=== PATIENT | female | born 1960 | race Two or more races ===

== ENCOUNTER 2023-02-25 15:34 | Outpatient (OUT) | payer OTHER, SELFPAY ==
[2023-02-25 16:00] LABS: Basophils Percent Auto 0.6 % (0.2-2.0); Eosinophils Absolute Auto 0.3 10^3/uL (0.0-0.7); Eosinophils Percent Auto 4.1 % (0.9-7.0); Hematocrit 38.4 % (36.0-48.0); Hemoglobin 12.8 g/dL (12.0-16.0); Immature Granulocytes Abs Auto 0.02 10^3/uL (0.00-0.03); Immature Granulocytes Pct Auto 0.3 % (0.0-0.5); Lymphocytes Absolute Auto 2.1 10^3/uL (1.2-3.8); Lymphocytes Percent Auto 33.2 % (20.5-60.0); Mean Corpuscular HGB Conc 33.3 g/dL (29.9-35.2); Mean Corpuscular Hemoglobin 30.4 pg (26.7-34.0); Mean Corpuscular Volume 91.2 fL (81.0-99.0); Mean Platelet Volume 9.4 fL (9.5-13.5); Monocytes Absolute Auto 0.6 10^3/uL (0.3-0.8); Monocytes Percent Auto 9.8 % (1.7-12.0); Neutrophils Absolute Auto 3.3 10^3/uL (1.4-6.5); Platelet Count 225 10^3/uL (150-450); Red Blood Count 4.21 10^6/uL (4.20-5.40); Red Cell Distribution Width 12.9 % (11.0-15.0); White Blood Count 6.3 10^3/uL (4.0-11.0)
[2023-02-25 16:09] LABS: Estimated Average Glucose 105 mg/dL; Glycohemoglobin A1C 5.3 % (4.5-6.2)
[2023-02-25 16:20] LABS: Alanine Aminotransferase 36 U/L (14-59); Albumin Globulin Ratio 1.2; Albumin Level 4.1 g/dL (3.4-5.0); Alkaline Phosphatase 89 U/L (46-116); Anion Gap 10.3; Aspartate Amino Transferase 20 U/L (15-37); BUN Creatinine Ratio 26.4; Bilirubin Total 0.4 mg/dL (0.2-1.0); Calcium 8.8 mg/dL (8.5-10.1); Carbon Dioxide 29.2 mmol/L (21.0-32.0); Chloride 106 mmol/L (98-107); Estimated GFR (African America >60 (>=60); Estimated GFR (Non-African Ame >60 (>=60); Globulin 3.3 g/dL; Glucose 113 mg/dL (74-106); Potassium 3.5 mmol/L (3.5-5.1); Sodium 142 mmol/L (136-145); Thyroid Stimulating Hormone 1.858 uIU/mL (0.358-3.740); Total Protein 7.4 g/dL (6.4-8.2)
== END 2023-02-25 15:35 | disposition home or self-care (01) ==
PROVIDERS: PCP Internal Medicine; Visit Provider Internal Medicine
DX: Z00.00 Encounter for general adult medical examination without abnormal findings (principal); Z12.11 Encounter for screening for malignant neoplasm of colon
CPT/HCPCS: 36415; 80053; 82607; 83036; 84443; 85025

== ENCOUNTER 2023-03-11 16:11 | Outpatient (OUT) | payer OTHER, SELFPAY ==
--- NOTE | 2023-03-11 16:35 | MM_ITS ---
Patient: ELLE GALLAGHER Exam Date: 03/11/2023 : 1960 Gender:F Ordering : DR Dwayne Hill D.O. Admission #: [id number] Family : Order #: [id number] CLICK HERE TO VIEW EXAM RADIOLOGY REPORT PROCEDURE: MM TOMOSYNTHESIS SCREENING BI COMPARISON: MG MAMM DIAGNOSTIC 3D VALENTIN CAD, 07/03/2021. MG MAMM VALENTIN DIAG W CAD, 07/18/2020. INDICATIONS: Screening mammogram Calculator Name NCI Breast Cancer Risk Assessment Tool 5 Year Breast Cancer Risk 0.70% Lifetime Breast Cancer Risk 4.00% Personal Breast Cancer No Personal Ovarian Cancer No Treatments None Family Cancers None LOCATION: [facility] BREAST COMPOSITION: Scattered areas fibroglandular density. FINDINGS: DIAGNOSTIC CATEGORY 2--BENIGN FINDING: RIGHT BREAST: No significant suspicious finding. No significant change has occurred. LEFT BREAST: No significant suspicious finding. Stable asymmetries. No significant change has occurred. RECOMMENDATIONS: ROUTINE MAMMOGRAM AND CLINICAL EVALUATION IN 12 MONTHS. PLEASE NOTE: A NORMAL MAMMOGRAM DOES NOT EXCLUDE THE POSSIBILITY OF BREAST CANCER. A CLINICALLY SUSPICIOUS PALPABLE LUMP SHOULD BE BIOPSIED. Dictated by: Lonnie Garcia M.D. on 03/12/2023 at 10:19 Approved by: Lonnie Garcia M.D. on 03/12/2023 at 10:22
== END 2023-03-11 16:12 | disposition home or self-care (01) ==
LOC: MAMMO 16:11
PROVIDERS: PCP Internal Medicine; Visit Provider Internal Medicine
DX: Z12.31 Encounter for screening mammogram for malignant neoplasm of breast (principal)
CPT/HCPCS: 77063; 77067

== ENCOUNTER 2023-03-30 15:17 | Outpatient (OUT) | payer OTHER, SELFPAY ==
--- NOTE | 2023-03-30 | XR_ITS ---
The [place] [id number] Patient Name: ELLE GALLAGHER MRN: [id number] date: 1960 Sex: F Assigned Patient Location: RAD Current Patient Location: RAD Accession/Order Number: [id number] Exam Date: 03/30/2023 15:44 Report Date: 03/30/2023 16:23 At the request of: DANILO RODRIGUEZ Procedure: XR foot LT min 3V XR foot LT min 3V, 03/30/2023 3:44 PM EDT, [place]001 INDICATION: BUMP ON FOOT COMPARISON: None TECHNIQUE: 3 images are submitted. FINDINGS: The bones appear well mineralized. No acute fracture or subluxation is identified. There is slight osteophyte formation at the first metatarsophalangeal joint. There are minimal plantar and posterior calcaneal spurs. The visualized soft tissues appear unremarkable. XR/XR foot LT min 3V IMPRESSION: No acute traumatic abnormality or malalignment. Slight degenerative change. Electronically authenticated by: JACQUI HAINES Date: 03/30/2023 16:23
== END 2023-03-30 15:18 | disposition home or self-care (01) ==
LOC: RAD 15:18
PROVIDERS: PCP Internal Medicine; Visit Provider Physician Assistant
DX: M79.672 Pain in left foot (principal)
CPT/HCPCS: 73630

== ENCOUNTER 2023-04-06 15:29 | Outpatient (OUT) | payer OTHER, SELFPAY ==
--- NOTE | 2023-04-06 15:38 | MR_ITS ---
The [address] [address] Patient Name: ELLE GALLAGHER MRN: [id number] date: 1960 Sex: F Assigned Patient Location: MRI Current Patient Location: MRI Accession/Order Number: [id number] Exam Date: 04/06/2023 15:45 Report Date: 04/06/2023 23:07 At the request of: DANILO RODRIGUEZ Procedure: MR foot LT wo con EXAM: MR foot LT wo con HISTORY: Left foot soft tissue mass COMPARISON: Left foot x-rays 03/30/2023 TECHNIQUE: Multiplanar, multi sequential MRI sequences were performed. FINDINGS: This study is limited as the only fluid sensitive fat saturated sequences performed in the sagittal projection. Within the dorsal subcutaneous soft tissues adjacent to the lateral aspect of the first proximal phalanx base is a 14.4 x 7.9 x 7.7 mm simple appearing synovial cyst (axial 13 and sagittal 18). No soft tissue edema, hematoma or discrete mass. No visualized fracture, dislocation, subluxation or osseous lesion. No joint effusion, synovitis or visualized erosion. The visualized tendons exhibit no gross thickening, tear, edema or tenosynovial collection. No abnormal bursal fluid collection. No sesamoid dislocation. Evaluation of the intersesamoid ligament is limited, however, it is presumed to be intact. No gross visualized muscular irregularity. MR/MR foot LT wo con IMPRESSION: 14.4 x 7.9 x 7.7 mm simple appearing synovial cyst adjacent to the base of the first proximal phalanx. Electronically authenticated by: ERWIN BECKER Date: 04/06/2023 23:07
== END 2023-04-06 15:30 | disposition home or self-care (01) ==
LOC: MRI 15:30
PROVIDERS: PCP Internal Medicine; Visit Provider Physician Assistant
DX: R22.42 Localized swelling, mass and lump, left lower limb (principal); M71.372 Other bursal cyst, left ankle and foot
CPT/HCPCS: 73718

== ENCOUNTER 2024-01-15 10:56 | Emergency (ER) | payer SELFPAY ==
[2024-01-15 11:02] VITALS: BP 154/99; PULSE 80; TEMP 36.8; O2SAT 97; BMI 27.7
[2024-01-15] MEDS: TRIAMCINOLONE ACETONIDE 40 MG/ML VIAL IM (12:11)
[2024-01-15] MEDS: DEXAMETHASONE SOD PHOS 4 MG/ML VIAL IV (12:11)
[2024-01-15 12:19] VITALS: PULSE 72; O2SAT 99
--- NOTE | 2024-01-15 12:59 | ED_ITS ---
HPI HPI - General Adult General Chief complaint: Allergic Reaction Stated complaint: ALLERGIC REACTION Time Seen by Provider: 01/15/24 11:07 Source: patient Mode of arrival: walk-in Limitations: no limitations History of Present Illness HPI narrative: 63-year-old female to the emergency department chief complaint of rash on the left side of her face and her neck/chest. Symptoms began on Wednesday after mowing the lawn. She is never had symptoms like this before. She reports some swelling associated with the redness. She denies any fever, sweats, chills. She is not diabetic. She reports that her face itches. She has taken Benadryl and Zyrtec and it did help. Related Data Allergies Allergy/AdvReac Type Severity Reaction Status Date / Time Penicillins Allergy Mild Anaphylaxis Verified 01/15/24 11:06 Opioid HPI Opioid Management Most Recent Opioid Data: No Data to Display Review of Systems ROS Status of ROS 10 or more systems reviewed and unremark able except as noted in history and below Exam Narrative Exam Narrative: VITALS: I have reviewed the triage vital signs. GENERAL: Well developed, well appearing adult in no acute distress. NEURO: Alert and oriented. Moves all extremities. Face is symmetric and e xpressive. EYES: PERRL. No scleral icterus or conjunctival injection. No discharge. HENT: Normocephalic, atraumatic. Hearing is grossly intact. Nares grossly patent and without discharge. Mucous membranes moist. NECK: No JVD. Patient moves neck without restriction. EXTREMITIES: Symmetric muscle bulk. No joint swelling. No clubbing, cyanosis, or deformity. SKIN: Erythematous rash without vesicles to the face left worse than right, some mild left-sided lid edema, rash extrinsics as streaky red lines to the neck and chest. No hives. No petechia or purpura. No warmth. No sharply demarcated lines. PSYCH: Mood, affect, and interaction is appropriate to the setting. Constitutional Vital Signs, click to edit/add: Last Vital Signs Temp 98.3 F 01/15/24 11:02 Pulse 72 01/15/24 12:19 Resp 16 01/15/24 12:19 BP 154/99 H 01/15/24 11:02 Pulse Ox 99 01/15/24 12:19 O2 Del Method Room Air 01/15/24 11:02 Course Vital Signs Vital signs: Vital Signs Temperature 98.3 F 01/15/24 11:02 Pulse Rate 80 01/15/24 11:02 Respiratory Rate 20 01/15/24 11:02 Blood Pressure 154/99 H 01/15/24 11:02 Pulse Oximetry 97 01/15/24 11:02 Oxygen Delivery Method Room Air 01/15/24 11:02 Temperature 98.3 F 01/15/24 11:02 Pulse Rate 72 01/15/24 12:19 Respiratory Rate 16 01/15/24 12:19 Blood Pressure 154/99 H 01/15/24 11:02 Pulse Oximetry 99 01/15/24 12:19 Oxygen Delivery Method Room Air 01/15/24 11:02 Medical Decision Making MDM Narrative Medical decision making narrative: Otherwise well-appearing 63-year-old female to the emergency department chief complaint of rash to her face and chest. Vital stable, the patient is afebrile. Temporal association with cutting the grass. Clinical exam is that of contact dermatitis. Possibly even poison teresita/poison oak. Does not appear to be zoster. Does not appear to be erysipelas or cellulitis. Will treat with steroids. She is given a dose of dexamethasone and a shot of Kenalog. She will continue to take Benadryl and Zyrtec at home. She will follow-up with her PCP for repeat evaluation. Return precautions were discussed. I educated on signs of infectious process. All questions were answered. Patient was discharged home. Medical Records Medical records reviewed: Yes I reviewed the patient's medical records Discharge Plan Discharge Stand Alone Forms: Portal Instructions Chief Complaint: Allergic Reaction Clinical Impression: Contact dermatitis and eczema due to plant Patient Disposition: Home, Self-Care Time of Disposition Decision: 12:12 Condition: Good Mode of Transportation: Private Vehicle Print Language: Faroese Instructions: Contact Dermatitis (ED) Additional Instructions: Call the office of your primary care doctor to arrange for follow-up within the above-stated timeframe. Follow-up with your primary care doctor about this ED visit. You should review your labs, imaging, and diagnoses from this ED visit with your primary care physician. There may be non-emergent findings that need further evaluation. If you were prescribed medications you should discuss possible side-effects and drug interactions with your pharmacist. Call 911 or go to the nearest Emergency Department if you develop any new or worsening symptoms. You may continue to take Benadryl and Zyrtec at home. Referrals: Dwayne Hill DO [Primary Care Provider] - 1 week Discharge Date/Time: 01/15/24 12:32
== END 2024-01-15 12:32 | disposition home or self-care (01) ==
PROVIDERS: Emergency Provider Student in an Organized Health Care Education/Training Program; PCP Internal Medicine
DX: L23.7 Allergic contact dermatitis due to plants, except food (principal)
CPT/HCPCS: 96372; 96374; 99284; J1100; J3301

== ENCOUNTER 2024-03-16 14:53 | Outpatient (OUT) | payer SELFPAY ==
--- NOTE | 2024-03-16 14:57 | MM_ITS ---
Patient Name: ELLE GALLAGHER MR#: [id number] : 1960 Exam Date: 03/16/2024 Ordering Doctor: DR Dwayne Hill D.O. RADIOLOGY REPORT PROCEDURE: MM TOMOSYNTHESIS SCREENING BI COMPARISON: MM TOMOSYNTHESIS SCREENING BI, 03/11/2023. MG MAMM DIAGNOSTIC 3D VALENTIN CAD, 07/03/2021. MG MAMM VALENTIN DIAG W CAD, 07/18/2020. INDICATIONS: Screening Calculator Name NCI Breast Cancer Risk Assessment Tool 5 Year Breast Cancer Risk 0.80% Lifetime Breast Cancer Risk 3.90% Personal Breast Cancer No Personal Ovarian Cancer No Treatments None Family Cancers None LOCATION: [facility] BREAST COMPOSITION: There are scattered areas of fibroglandular density. FINDINGS: DIAGNOSTIC CATEGORY 2--BENIGN FINDING: RIGHT BREAST: No significant suspicious finding. No significant change has occurred. LEFT BREAST: No significant suspicious finding. Stable asymmetric fibroglandular tissue within upper anterior breast. No significant change has occurred. RECOMMENDATIONS: ROUTINE MAMMOGRAM AND CLINICAL EVALUATION IN 12 MONTHS. PLEASE NOTE: A NORMAL MAMMOGRAM DOES NOT EXCLUDE THE POSSIBILITY OF BREAST CANCER. A CLINICALLY SUSPICIOUS PALPABLE LUMP SHOULD BE BIOPSIED. Dictated by: Lonnie Garcia M.D. on 03/17/2024 at 12:40 Approved by: Lonnie Garcia M.D. on 03/17/2024 at 12:43
--- OUTSIDE RECORDS SUMMARY | 2024-03-16 15:09 | XMS_ITS | CCD ---
Author Organization [facility] Care Team Providers Care Machine Operator Packaging Name Role Phone SERGIO, DR BOYKIN Consulting Unavailable BALL, DR BOYKIN Primary Care Unavailable BALL, DR BOYKIN Admitting Unavailable BALL, DR BOYKIN Attending Unavailable BLAZE, DR ERWIN Calderon Consulting Unavailable BALL, DR BOYKIN Primary Care Unavailable SERGIO, DR BOYKIN Admitting Unavailable BALL, DR BOYKIN Attending Unavailable BALL, DR BOYKIN Consulting Unavailable ZIEBER, DR LONNIE Pablo Consulting Unavailable BALL, DR BOYKIN Consulting Unavailable BALL, DR BOYKIN Primary Care Unavailable BALL, DR BOYKIN Admitting Unavailable BALL, DR BOYKIN Attending Unavailable Ball, Dwayne Unavailable Allergies Allergy Classification Reported Allergen(s) Allergy Type Date of Onset Reaction(s) Facility (1 source) Morphine Drug Allergy 12-13-19 14 [facility] Repository (1 source) Penicillins Drug allergy (disorder) 12-13-19 14 [facility] Repository (5 sources) Latex Drug allergy Unknown [facility] Other (5 sources) Substance with penicillin structure and antibacterial mechanism of action (substance) Drug allergy Unknown [facility] Other (2 sources) patient allergy list reviewed by nurse or physicia Propensity to adverse reactions 03-07-20 18 Comment:Done [facility] Other (2 sources) Allergies Reconciled Propensity to adverse reactions Unknown [facility] Other Medications Current Medications Medication Drug Class(es) Dates Sig (Normalized) Sig (Original) aspirin 81 mg delayed release oral tablet (4 sources) Platelet Aggregation Inhibitor, Nonsteroidal Anti-inflammatory Drug Start: 03-14-2022 Aspirin Adult Low Dose 81 MG Aspirin( 81MG Oral 1 daily ) Active -Hx Entry Oral daily Mar, Active escitalopram 10 mg oral tablet (1 source) Serotonin Reuptake Inhibitor Start: 08-11-2023 take 1 tablet by mouth once at bedtime Escitalopram Oxalate 10 MG 1 tablet Orally q HS for 30 days Aug, Active estrogens, conjugated (mcfp) 0.625 mg/ml vaginal cream (4 sources) Estrogen Start: 08-08-2020 Premarin 0.625 MG/GM as directed Vaginal three times per week at bedtime for 0 days ok to substitute whatever insurance will cover *Pick strength-form from [employer] for [employer]* Aug, Active Start: 08-08-2020 Premarin 0.625 MG/GM as directed Vaginal three times per week at bedtime for 0 days ok to substitute whatever insurance will cover *Pick strength-form from [employer] for [employer]* Aug, Active Start: 08-08-2020 Premarin 0.625 MG/GM Premarin 0.625MG/GM, 1 (one) gram gram three times per week at bedtime # 1, 08/08/2020, Ref. x2. Active Vaginal three times per week at bedtime for 0 ok to substitute whatever insurance will cover *Pick strength-form from [employer] [facility] [employer]* Aug, Active gabapentin 100 mg oral capsule (2 sources) Anti-epileptic Agent Start: 02-23-2023 take 1-2 capsules by mouth once at bedtime Gabapentin 100 MG 1-2 capsules Orally q HS for 30 days Jan, Active isosorbide dinitrate 30 mg oral tablet (2 sources) Nitrate Vasodilator Start: 03-14-2022 Isosorbide Dinitrate 30MG Isosorbide Dinitrate( 30MG Oral 1 daily ) Active -Hx Entry Oral daily for 0 *Pick strength-form from [employer] for [employer]* Mar, Active LORazepam 0.5 mg oral tablet (1 source) Benzodiazepine Start: 08-11-2023 take 1 tablet by mouth every twenty-four hours LORazepam 0.5 MG 1 tablet at bedtime as needed Orally Once a day for 30 days Aug, Active losartan potassium 25 mg oral tablet (4 sources) Angiotensin 2 Receptor Cyndi Start: 03-12-2022 take 1 tablet by mouth every twenty-four hours Losartan Potassium 25 MG 1 tablet Orally Once a day for 90 days Mar, Active 24 hr metoprolol succinate 25 mg extended release oral tablet (4 sources) beta-Adrenergic Cyndi Start: 08-13-2022 Metoprolol Succinate ER 25 MG Metoprolol Succinate ER( 25MG Oral 1 daily ) Active -Hx Entry Oral daily for 0 Mar, Active omeprazole 40 mg delayed release oral capsule (2 sources) Proton Pump Inhibitor Start: 06-26-2020 take 1 capsule by mouth once daily Omeprazole 40 MG Omeprazole 40MG, 1 (one) Capsule daily on an empty stomach followed in 30 minutes by bkt # 30, 06/26/2020, Ref. x5. Active Oral daily on an empty stomach followed in 30 minutes by bkt for 30 Jun, Active pantoprazole 40 mg delayed release oral tablet (2 sources) Proton Pump Inhibitor take 1 tablet by mouth every twenty-four hours Pantoprazole Sodium 40 MG 1 tablet Orally Once a day Active predniSONE 20 mg oral tablet (1 source) Start: 06-08-2023 take 1 tablet by mouth twice daily predniSONE 20 MG 1 tablet Orally twice daily w/ food for 5 days Jun, Active Psyllium (2 sources) Start: 06-08-2023 Metamucil 28 % 1 packet with 8 ounces of liquid as needed Orally Once a day for 30 days Jun, Active Problems Active Problems Problem Classification Problem Date Documented Date Episodic/Chronic Abdominal pain (3 sources) Pelvic and perineal pain; Translations: [Pelvic and perineal pain] Episodic Acute bronchitis (2 sources) Acute bronchitis; Translations: [Acute bronchitis due to other specified organisms] Episodic Anxiety disorders (6 sources) Generalized anxiety disorder; Translations: [Generalized anxiety disorder] Onset: 5 Chronic Calculus of urinary tract (10 sources) History of calculus of kidney; Translations: [Personal history of urinary calculi] Episodic Conditions associated with dizziness or vertigo (9 sources) Benign paroxysmal positional vertigo; Translations: [Benign paroxysmal vertigo, left ear] Onset: 4 Episodic Esophageal disorders (6 sources) Esophageal reflux finding; Translations: [Esophageal reflux] Onset: 4 Chronic Essential hypertension (10 sources) Essential hypertension; Translations: [Essential (primary) hypertension] Chronic Genitourinary symptoms and ill-defined conditions (4 sources) Urinary incontinence; Translations: [Unspecified urinary incontinence] Resolved: 0 Chronic Headache; including migraine (11 sources) Migraine; Translations: [Migraine, unspecified, not intractable, without status migrainosus] Onset: 8 Chronic Headache; including migraine (4 sources) Headache caused by drug; Translations: [Drug-induced headache, not elsewhere classified, not intractable] Onset: 4 Episodic Inflammatory diseases of female pelvic organs (2 sources) Female pelvic peritoneal adhesions; Translations: [Female pelvic peritoneal adhesions (postinfective)] Episodic Lymphadenitis (6 sources) Localized enlarged lymph nodes; Translations: [Localized enlarged lymph nodes] Onset: 2 Episodic Menopausal disorders (4 sources) Atrophic vaginitis; Translations: [Postmenopausal atrophic vaginitis] Onset: 1 Resolved: 8 Chronic Miscellaneous mental health disorders (4 sources) Mental disorder; Translations: [Mental disorder, not otherwise specified] Chronic Mood disorders (9 sources) Mild recurrent major depression; Translations: [Major depressive disorder, recurrent, mild] Chronic Nonmalignant breast conditions (6 sources) Unspecified lump in the left breast, unspecified quadrant; Translations: [Unspecified lump in the left breast, upper outer quadrant] Onset: 1 Episodic Nonspecific chest pain (2 sources) Chest pain; Translations: [Other chest pain] Episodic Other aftercare (2 sources) History and physical examination, follow-up; Translations: [Encounter for follow-up examination after completed treatment for conditions other than malignant neoplasm] Episodic Other congenital anomalies (2 sources) Congenital spondylolysis of lumbosacral region; Translations: [Congenital spondylolysis, lumbosacral region] Onset: 7 Chronic Other connective tissue disease (2 sources) Ganglion, unspecified ankle and foot; Translations: [Ganglion, unspecified ankle and foot] Episodic Other connective tissue disease (2 sources) Plantar fascial fibromatosis; Translations: [Plantar fascial fibromatosis] Episodic Other ear and sense organ disorders (2 sources) Tinnitus of left ear; Translations: [Tinnitus, left ear] Episodic Other female genital disorders (2 sources) Dyspareunia; Translations: [Unspecified dyspareunia] Chronic Other female genital disorders (2 sources) Noninflammatory disorder of the vagina; Translations: [Other specified noninflammatory disorders of vagina] Episodic Other gastrointestinal disorders (2 sources) Intra-abdominal and pelvic swelling, mass and lump; Translations: [Intra-abdominal and pelvic swelling, mass and lump, unspecified site] Episodic Other gastrointestinal disorders (2 sources) Pharyngeal dysphagia; Translations: [Dysphagia, pharyngoesophageal phase] Episodic Other gastrointestinal disorders (2 sources) H/O: gastrointestinal disease; Translations: [Personal history of other diseases of the digestive system] Episodic Other gastrointestinal disorders (2 sources) Constipation; Translations: [Constipation, unspecified] Episodic Other gastrointestinal disorders (1 source) Constipation, unspecified Episodic Other gastrointestinal disorders (1 source) Fecal smearing Episodic Other nervous system disorders (5 sources) Idiopathic peripheral neuropathy; Translations: [Hereditary and idiopathic neuropathy, unspecified] Chronic Other nervous system disorders (1 source) Hereditary and idiopathic neuropathy, unspecified Chronic Other nervous system disorders (4 sources) Polyneuropathy; Translations: [Polyneuropathy, unspecified] Chronic Other nutritional; endocrine; and metabolic disorders (2 sources) Simple obesity ; Translations: [Other obesity due to excess calories] Onset: 6 Chronic Other nutritional; endocrine; and metabolic disorders (2 sources) Body mass index 30+ - obesity; Translations: [Body mass index 30.0-30.9, adult] Onset: 6 Chronic Other nutritional; endocrine; and metabolic disorders (7 sources) Overweight; Translations: [Overweight] Onset: 5 Episodic Other nutritional; endocrine; and metabolic disorders (1 source) Overweight Episodic Other screening for suspected conditions (not mental disorders or infectious disease) (14 sources) Patient encounter status; Translations: [Encounter for screening for malignant neoplasm of colon] Onset: 5 Episodic Spondylosis; intervertebral disc disorders; other back problems (9 sources) Lumbar spondylosis; Translations: [Spondylosis without myelopathy or radiculopathy, lumbar region] Onset: 8 Chronic Sprains and strains (3 sources) Strain of muscle of left hip; Translations: [Strain of muscle, fascia and tendon of left hip, initial encounter] Onset: 7 Episodic Systemic lupus erythematosus and connective tissue disorders (2 sources) Systemic sclerosis; Translations: [Systemic sclerosis] Onset: 8 Chronic Unclassified (2 sources) CONTACT W/AND (SUSP) EXPOS COVID-19; Translations: [CONTACT W/AND (SUSP) EXPOS COVID-19] Onset: 2 Viral infection (3 sources) COVID-19; Translations: [Disease caused by 2019-nCoV] Onset: 2 Past or Other Problems Problem Classification Problem Date Documented Da te Episodic/Chronic Bacterial infection; unspecified site (2 sources) Bacterial infectious disease; Translations: [Bacterial infection, unspecified, in conditions classified elsewhere and of unspecified site] Onset: 12-10-2017 Episodic Esophageal disorders (6 sources) Esophageal disorders; Translations: [Gastroesophageal reflux disease with esophagitis without hemorrhage] Immunizations and screening for infectious disease (2 sources) Human papilloma virus screening; Translations: [Encounter for screening for human papillomavirus (HPV)] Resolved: 07-22-2020 Episodic Malaise and fatigue (2 sources) Malaise and fatigue; Translations: [Other malaise and fatigue] Onset: 03-11-2015 Episodic Nausea and vomiting (2 sources) Nausea; Translations: [Nausea] Resolved: 07-28-2018 Episodic Other connective tissue disease (2 sources) Pain in left lower limb; Translations: [Pain in left leg] Onset: 05-03-2017 Episodic Other connective tissue disease (2 sources) Ganglion of joint; Translations: [Ganglion of joint] Onset: 03-11-2016 Episodic Other ear and sense organ disorders (2 sources) Malignant otitis externa; 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, left ear] Resolved: 06-26-2020 Chronic Other gastrointestinal disorders (2 sources) Dysphagia; Translations: [Dysphagia, unspecified] Onset: 11-22-2013 Episodic Other nutritional; endocrine; and metabolic disorders (2 sources) Body mass index 25-29 - overweight; Translations: [Body mass index 29.0-29.9, adult] Onset: 05-18-2018 Episodic Other skin disorders (2 sources) Pyogenic granuloma; Translations: [Pyogenic granuloma] Onset: 01-21-2018 Episodic Other upper respiratory disease (2 sources) Nasal congestion; Translations: [Nasal congestion] Onset: 03-28-2019 Episodic Other upper respiratory infections (2 sources) Acute pharyngitis; Translations: [Acute pharyngitis due to other specified organisms] Onset: 12-10-2017 Episodic Residual codes; unclassified (2 sources) Postprocedural state finding; Translations: [Other specified postprocedural states] Resolved: 07-22-2020 Episodic Screening and history of mental health and substance abuse codes (2 sources) History of tobacco use; Translations: [Personal history of tobacco use, presenting hazards to health] Onset: 03-07-2018 Episodic Unclassified (1 source) CONTACT W/AND (SUSP) EXPOS COVID-19; Translations: [CONTACT W/AND (SUSP) EXPOS COVID-19] Onset: 08-19-2021 Urinary tract infections (2 sources) Urinary tract infectious disease; Translations: [Urinary tract infection, site not specified] Onset: 07-12-2011 Resolved: 07-28-2018 Episodic Results Test Name Value Interpretation Reference Range Facility US EXT NON VASC LIMITED LTon 10-31-2021 US EXT NON VASC LIMITED LT EXAMINATION: US EXT NON VASC LIMITED LT HISTORY: Localized enlarged lymph nodes COMPARISON: No relevant comparison available. FINDINGS: Grayscale and color ultrasound Two focal oval isoechoic lesions are identified in the left axilla Lesion 1: 0.8 x 0.8 x 0.6 cm. Oval, isoechoic to hyperechoic, well-circumscribed. Isovascular Lesion 2:4.3 x 2.9 x 0.7 cm. Oval, heterogeneous, hyperechoic, well-circumscribed, isovascular. IMPRESSION: 2 lesions identified in the left axilla. Atypical lymph nodes are favored. The etiology is unknown. Electronically authenticated by: ERWIN THAKUR Date: 2021-10-31 16:27 Normal [facility] Covid-19 PCR (CVDTBH)on 08-02 SARS-CoV-2 (COVID-19) RNA LOGAN+probe Ql (Unsp spec) Detected Critically abnormal NOT DETECTED [facility] Comment on above: Result Comment: This test is not yet approved or cleared by the [place] FDA. When there are no FDA-approved or cleared tests available, and other criteria are met, FDA can make tests available under an emergency access mechanism called an Emergency Use Authorization (EUA). The EUA for this test is supported by the [place] of Health and Human Service's (HHS's) declaration that circumstances exist to justify the emergency use of in vitro diagnostics for the detection and/or diagnosis of the virus that causes COVID-19. This EUA will remain in effect (meaning this test can be used) for the duration of the COVID-19 declaration justifying emergency of IVDs, unless it is terminated or revoked by FDA (after which the test may no longer be used). Performed By: #### [facility] #### [facility] [address] [address] [address] Sree Peacock MG MAMM DIAGNOSTIC 3D VALENTIN CA Don 07-03-2021 MG MAMM DIAGNOSTIC 3D VALENTIN CAD Patient: ELLE GALLAGHER Exam Date: 07/03/2021 : 1960 Gender:F Ordering : DR DWAYNE WAGNER DFaustina Admission #: [id number] Family : Order #: [id number] CLICK HERE TO VIEW EXAM RADIOLOGY REPORT PROCEDURE: MAMMOGRAM DIAGNOSTIC 3D BILATERAL CAD, 07/03/2021, 14:01 ULTRASOUND BREAST LEFT LIMITED, 07/03/2021, 14:32 COMPARISON: MG MAMM VALENTIN DIAG W CAD, 07/18/2020. INDICATIONS: Screening mammography Calculator Name NCI Breast Cancer Risk Assessment Tool 5 Year Breast Cancer Risk 0.70% Lifetime Breast Cancer Risk 4.10% Personal Breast Cancer No Personal Ovarian Cancer No Treatments None Family Cancers None LOCATION: [facility] BREAST COMPOSITION: Scattered areas fibroglandular density. FINDINGS: DIAGNOSTIC CATEGORY 2--BENIGN FINDING: RIGHT BREAST: No significant suspicious finding. No significant change has occurred. LEFT BREAST: No significant suspicious finding. Stable small asymmetry versus lymph node within the anterior upper-outer quadrant. No significant change has occurred. Ultrasound evaluation demonstrates normal appearing fibroglandular tissue within the lateral left breast. Note is made of a few slightly prominent axillary lymph nodes seen via ultrasound, which appear to be have prominent fatty hilum was on the mammogram. Clinical evaluation of left axilla for palpable month nodes should be considered. No overtly suspicious findings on today's study. If symptoms persist, follow-up ultrasound evaluation of the left axilla in 2-3 months may be beneficial. RECOMMENDATIONS: ROUTINE MAMMOGRAM AND CLINICAL EVALUATION IN 12 MONTHS. PLEASE NOTE: A NORMAL MAMMOGRAM DOES NOT EXCLUDE THE POSSIBILITY OF BREAST CANCER. A CLINICALLY SUSPICIOUS PALPABLE LUMP SHOULD BE BIOPSIED. Dictated by: Lonnie Garcia M.D. on 07/03/2021 at 15:05 Approved by: Lonnie Garcia M.D. on 07/03/2021 at 15:10 Normal [facility] US BREAST LEFT LIMITEDon US BREAST LEFT LIMITED Patient: AILEENELLE Exam Date: 07/03/2021 : 1960 Gender:F Ordering : DR DWAYNE WAGNER D.O. Admission #: [id number] Family : Order #: [id number] CLICK HERE TO VIEW EXAM RADIOLOGY REPORT PROCEDURE: MAMMOGRAM DIAGNOSTIC 3D BILATERAL CAD, 07/03/2021, 14:01 ULTRASOUND BREAST LEFT LIMITED, 07/03/2021, 14:32 COMPARISON: MG MAMM VALENTIN DIAG W CAD, 07/18/2020. INDICATIONS: Screening mammography Calculator Name NCI Breast Cancer Risk Assessment Tool 5 Year Breast Cancer Risk 0.70% Lifetime Breast Cancer Risk 4.10% Personal Breast Cancer No Personal Ovarian Cancer No Treatments None Family Cancers None LOCATION: [facility] BREAST COMPOSITION: Scattered areas fibroglandular density. FINDINGS: DIAGNOSTIC CATEGORY 2--BENIGN FINDING: RIGHT BREAST: No significant suspicious finding. No significant change has occurred. LEFT BREAST: No significant suspicious finding. Stable small asymmetry versus lymph node within the anterior upper-outer quadrant. No significant change has occurred. Ultrasound evaluation demonstrates normal appearing fibroglandular tissue within the lateral left breast. Note is made of a few slightly prominent axillary lymph nodes seen via ultrasound, which appear to be have prominent fatty hilum was on the mammogram. Clinical evaluation of left axilla for palpable month nodes should be considered. No overtly suspicious findings on today's study. If symptoms persist, follow-up ultrasound evaluation of the left axilla in 2-3 months may be beneficial. RECOMMENDATIONS: ROUTINE MAMMOGRAM AND CLINICAL EVALUATION IN 12 MONTHS. PLEASE NOTE: A NORMAL MAMMOGRAM DOES NOT EXCLUDE THE POSSIBILITY OF BREAST CANCER. A CLINICALLY SUSPICIOUS PALPABLE LUMP SHOULD BE BIOPSIED. Dictated by: Lonnie Garcia M.D. on 07/03/2021 at 15:05 Approved by: Lonnie Garcia M.D. on 07/03/2021 at 15:10 Normal [facility] Provider Letteron 11-28-2020 Provider Letter November 28, 2020 ELLE GALLAGHER [address] [address] ELLE GALLAGHER 1960 Dear Elle , You have an appointment with Dr. Pope on December 27, 2020 which will need to be rescheduled since he will be out of the office that day. Please contact the office at the number listed below to get this appointment rescheduled at your earliest convenience. Thank you for your prompt attention to this matter. Sincerely, [facility] [address] [place] [address] option 1 Normal [facility] Formson 09-17-2020 Forms [id number] [facility] Ambulatory Clinical Summaryo n 09-16-2020 Ambulatory Clinical Summary {[id number] [facility] Patient Educationon 09-16-19 Patient Education Obstetrics and Gynecology Overactive Bladder, Adult Overactive bladder refers to a condition in which a person has a sudden need to pass urine. The person may leak urine if he or she cannot get to the bathroom fast enough (urinary incontinence). A person with this condition may also wake up several times in the night to go to the bathroom. Overactive bladder is associated with poor nerve signals between your bladder and your brain. Your bladder may get the signal to empty before it is full. You may also have very sensitive muscles that make your bladder squeeze too soon. These symptoms might interfere with daily work or social activities. What are the causes? This condition may be associated with or caused by: ? Urinary tract infection. ? Infection of nearby tissues, such as the prostate. ? Prostate enlargement. ? Surgery on the uterus or urethra. ? Bladder stones, inflammation, or tumors. ? Drinking too much caffeine or alcohol. ? Certain medicines, especially medicines that get rid of extra fluid in the body (diuretics). ? Muscle or nerve weakness, especially from: ? A spinal cord injury. ? Stroke. ? Multiple sclerosis. ? Parkinson's disease. ? Diabetes. ? Constipation. What increases the risk? You may be at greater risk for overactive bladder if you: ? Are an older adult. ? Smoke. ? Are going through menopause. ? Have prostate problems. ? Have a neurological disease, such as stroke, dementia, Parkinson's disease, or multiple sclerosis (MS). ? Eat or drink things that irritate the bladder. These include alcohol, spicy food, and caffeine. ? Are overweight or obese. What are the signs or symptoms? Symptoms of this condition include: ? Sudden, strong urge to urinate. ? Leaking urine. ? Urinating 8 or more times a day. ? Waking up to urinate 2 or more times a night. How is this diagnosed? Your health care provider may suspect overactive bladder based on your symptoms. He or she will diagnose this condition by: ? A physical exam and medical history. ? Blood or urine tests. You might need bladder or urine tests to help determine what is causing your overactive bladder. You might also need to see a health care provider who specializes in urinary tract problems (urologist). How is this treated? Treatment for overactive bladder depends on the cause of your condition and whether it is mild or severe. You can also make lifestyle changes at home. Options include: ? Bladder training. This may include: ? Learning to control the urge to urinate by following a schedule that directs you to urinate at regular intervals (timed voiding). ? Doing Kegel exercises to strengthen your pelvic floor muscles, which support your bladder. Toning these muscles can help you control urination, even if your bladder muscles are overactive. ? Special devices. This may include: ? Biofeedback, which uses sensors to help you become aware of your body's signals. ? Electrical stimulation, which uses electrodes placed inside the body (implanted) or outside the body. These electrodes send gentle pulses of electricity to strengthen the nerves or muscles that control the bladder. ? Women may use a plastic device that fits into the vagina and supports the bladder (pessary). ? Medicines. ? Antibiotics to treat bladder infection. ? Antispasmodics to stop the bladder from releasing urine at the wrong time. ? Tricyclic antidepressants to relax bladder muscles. ? Injections of botulinum toxin type A directly into the bladder tissue to relax bladder muscles. ? Lifestyle changes. This may include: ? Weight loss. Talk to your health care provider about weight loss methods that would work best for you. ? Diet changes. This may include reducing how much alcohol and caffeine you consume, or drinking fluids at different times of the day. ? Not smoking. Do not use any products that contain nicotine or tobacco, such as cigarettes and e-cigarettes. If you need help quitting, ask your health care provider. ? Surgery. ? A device may be implanted to help manage the nerve signals that control urination. ? An electrode may be implanted to stimulate electrical signals in the bladder. ? A procedure may be done to change the shape of the bladder. This is done only in very severe cases. Follow these instructions at home: Lifestyle ? Make any diet or lifestyle changes that are recommended by your health care provider. These may include: ? Drinking less fluid or drinking fluids at different times of the day. ? Cutting down on caffeine or alcohol. ? Doing Kegel exercises. ? Losing weight if needed. ? Eating a healthy and balanced diet to prevent constipation. This may include: ? Eating foods that are high in fiber, such as fresh fruits and vegetables, whole grains, and beans. ? Limiting foods that are high in fat and processed sugars, such as fried and sweet foods. General instructions ? Take ove (more content not included)... 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 Pt is currently not taking any bladder medications. Pt states that she has had infections in the past year. Pt states that she has mild lower abdominal pain with urination for the past 5-6 months every time she voids. PVR today is at 36ml. Dysuria: yes, pain in lower abdomen Incomplete bladder emptying: unsure Hematuria: _denies seeing any blood in urine, UA is clear Frequency: increased over the past 5-6 months Urgency: yes, Nocturia: 4-5x a night Stream: average stream, Post void dripping: unsure Wearing pads/ Depends: yes, Urge incontinence: yes Stress incontinence: unsure, she believes so Incontinence without Sensory Awareness: unsure Abdominal pain: yes with lower abdominal pain History of Present Illness Reviewed urine and new patient. There have been no associated fever, chills, flank pain or blood in the urine. Pt. denies any pain/burning with urination at this time. Review of Systems PHQ Score Initial Depression Screen Score: 0 ROS - Provider Constitutional: denies weight loss, denies hot flashes. Eyes: denies eye problems. Gastrointestinal: denies nausea, denies vomiting. Cardiovascular: denies chest pain or angina. Integumentary: no dryness Musculoskeletal: denies musculoskeletal symptoms. ENMT: denies otolaryngeal symptoms. Respiratory: no shortness of breath. Heme/Lymph: denies easy bleeding tendency, denies easy bruising tendency. Psychiatric: no confusion, no anxiety. Genitourinary: denies vaginal discharge, moderate incontinence, denies dysuria, denies hematuria, moderate urinary frequency, denies amenorrhea, denies menorrhagia, denies abnormal bleeding, denies pelvic pain, denies genital sores, and denies decreased libido. Physical Exam Vitals & Measurements HR: 85(Peripheral) RR: 18 BP: 150/95 HT: 150.0 cm HT: 150 cm General Appearance: alert , no acute distress, well nourished, well developed female. Head: normocephalic . Eyes: normal orbit and globe. ENMT: normal examination of external ears. Chest: Lungs CTA, respirations non labored . Cardiovascular: regular rate and rhythm. Abdomen: soft, non distended, no tenderness, no mass or organomegaly, no hernia. Genitourinary: bladder nonpalpable, no flank tenderness. Lymph Nodes: unremarkable palpation of the cervical area. Skin: warm, dry, no bruising. Psychiatric: cooperative, affect appropriate for age, normal judgement, euthymic mood. Assessment/Plan 1. Mixed incontinence (N39.46: Mixed incontinence) Moderate - severe urge incontinence and intermittent stress incontinence. Pt. states she has to wear protective wear. PVR today - 36ml. Will start pt. on Oxybutynin ER 10mg qd. Discussed the medication side effects, and the patient will monitor closely for these, as well as for symptom improvement. If severe side effects occur, the medication should be stopped and the office notified. New script sent to [facility] in [place]. 2. Nocturia (R35.1: Nocturia) 4-5x/night. 3. Urgency of urination (R39.15: Urgency of urination) Moderate - severe. 4. Frequency of urination (R35.0: Frequency of micturition) Pt. states she goes all the time. I have reviewed the previous health record information and history for this pt. from Dr. Pope. Follow-up With When Contact Information AUGUSTINE CHURCHILL, Eloy Pablo [facility] [place] [address] [place] [address] [phone] Additional Instructions: 3mos. Patient Education Overactive Bladder, Adult I, Flores Bustamante , personally scribed for Dr. Pope on 09/16/2020 10:25:29. . Documentation recorded by the scribe, Flores Bustamante, accurately reflects the services(s) I performed and decisions made by me. Authenticated by Dr. Pope on 09/16/2020 10:26:56. Problem List/Past Medical History Ongoing No qualifying data Historical No qualifying data Medications losartan 25 mg Tab, 25 mg= 1 tab(s), Oral, Daily metoprolol 25 mg ER Tab, 25 mg= 1 tab(s), Oral, BID omeprazole 40 mg Cap-DR, 40 mg= 1 cap(s), Oral, Daily oxybutynin 10 mg ER Tab, 10 mg= 1 tab(s), Oral, Daily, 3 refills Allergies penicillins (Unknown) Social History Tobacco Former smoker, quit more than 30 days ago Tobacco Use:., 09/16/2020 Former smoker, quit more than 30 days ago Tobacco Use:. Started age 15.0 Years. Stopped age 24 Years., 08/29/2020 Family History Elevated cholesterol: Mother. Hypertension: Mother. Lab Results Ambulatory Point of Care Results Bilirubin Urine Dipstick: Negative (09/16/20 09:26:00) Blood Urine Dipstick: Negative (09/16/20 09:26:00) Glucose Urine Dipstick: Negative (09/16/20 09:26:00) Ketones Urine Dipstick: Negative (09/16/20 09:26:00) Leukocytes Urine Dipstick: Trace (09/16/20 09:26:00) Nitrite Urine Dipstick: Negative (09/16/20 09:26:00) Protein Urine Dipstick: Negative (09/16/20 09:26:00) Specific Grav (more content not included)... Normal [facility] Comment on above: Result Comment: Elec tronically Signed By: AUGUSTINE CHURCHILL, Eloy Pablo\.br\Date and Time Signed: 09/16/20 10:27 EST\.br\Electronically Co-Signed By: Flores Bustamante MA\.br\Date and Time Co-Signed: 09/16/20 10:25 EST [employer] 09-06-2020 Forms [id number] .[id number]:127 Normal [facility] Physician Referralon 021 Physician Referral [id number] 1.00CD:127 Normal [facility] Vital Signs Date Time Vital Sign Value Performing Clinician Facility 08-11-2023 11:30-0500 Body height 148.59 cm Dwayne Ball Other [facility] Other 08-11-2023 11:30-0500 Body mass index (BMI) [Ratio] 28.92 kg/m2 Dwayne Ball Other [facility] Other 08-11-2023 11:30-0500 Body weight 63.87 kg Dwayne Ball Other [facility] Other 08-11-2023 11:30-0500 Diastolic blood pressure 83 mm[Hg] Dwayne Ball Other [facility] Other 08-11-2023 11:30-0500 Respiratory rate 12 /min Dwayne Ball Other [facility] Other 08-11-2023 11:30-0500 Systolic blood pressure 148 mm[Hg] Dwayne Ball Other [facility] Other 06-08-2023 15:00-0500 Body height 148.59 cm Dwayne Ball Other [facility] Other 06-08-2023 15:00-0500 Body mass index (BMI) [Ratio] 28.92 kg/m2 Dwayne Ball Other [facility] Other 06-08-2023 15:00-0500 Body weight 63.87 kg Dwayne Ball Other [facility] Other 06-08-2023 15:00-0500 Diastolic blood pressure 88 mm[Hg] Dwayne Ball Other [facility] Other 06-08-2023 15:00-0500 Respiratory rate 12 /min Dwayne Ball Other [facility] Other 06-08-2023 15:00-0500 Systolic blood pressure 151 mm[Hg] Dwayne Ball Other [facility] Other 02-17-2023 15:00-0400 Body height 148.59 cm Dwayne Ball Other [facility] Other 02-17-2023 15:00-0400 Body mass index (BMI) [Ratio] 28.8 kg/m2 Dwayne Ball Other [facility] Other 02-17-2023 15:00-0400 Body weight 63.59 kg Dwayne Ball Other [facility] Other 02-17-2023 15:00-0400 Diastolic blood pressure 86 mm[Hg] Dwayne Ball Other [facility] Other 02-17-2023 15:00-0400 Respiratory rate 12 /min Dwayne Ball Other [facility] Other 02-17-2023 15:00-0400 Systolic blood pressure 134 mm[Hg] Dwayne Ball Other [facility] Other Encounters Encounter Date Encounter Type Care Provider Facility Start: 08-11-2023 End: 08-11-2023 ambulatory Dwayne Ball Other [facility] Other Start: 08-11-2023 Office outpatient vi sit 15 minutes Dwayne Wagner [facility] Start: 06-08-2023 End: 06-08-2023 ambulatory Dwayne Wagner Other [facility] Other Start: 06-08-2023 Office outpatient vi sit 25 minutes Dwayne Wagner [facility] Start: 03-08-2023 End: 03-08-2023 ambulatory Dwayne Wagner Other [facility] Other Start: 03-08-2023 Telephone encounter Dwayne Wagner [facility] Start: 02-26-2023 End: 02-26-2023 ambulatory Dwayne Wagner Other [facility] Other Start: 02-26-2023 Telephone encounter Dwayne Wagner [facility] Start: 02-17-2023 End: 02-17-2023 ambulatory Dwayne Wagner Other [facility] Other Start: 02-17-2023 Encounter for genera l adult medical examination without abnormal findings Dwayne Wagner [facility] Start: 02-17-2023 Periodic preventive med est patient 40-64yrs Dwayne Sergio [facility] Start: 10-31-2021 End: 11-01-[address] DWAYNE WAGNER Facility:[facility] Start: 08-19-2021 End: 08-19-[address] DWAYNE WGANER Facility:[facility] Start: 07-03-2021 End: 07-04-[address] DWAYNE WAGNER Facility:[facility] Start: 10-31-2020 End: 10-31-2020 Gynecological examination normal Dwayne Sergio Other [facility] Other Start: 07-22-2020 End: 07-22-2020 Gynecological examination abnormal Dwayne Wagner Other [facility] Other Procedures Date Procedure Procedure Detail Performing Clinician Screening for malign ant neoplasm of breast Dwayne Wagner Other Screening for osteoporosis B enjajerel Wagner Other Immunizations Immunization Date Immunization Notes Care Provider Fa mar 04-10-2022 COVID-19 Moderna (BIvalent) Dwayne Wagner Other [facility] Other 05-23-2021 COVID-19 Vaccine Jaime - Documentation Purposes Only Dwayne Wagner Other [facility] Other 10-22-2020 COVID-19 Vaccine Jaime - Documentation Purposes Only Dwayne Wagner Other [facility] Other Payers Date Payer Category Payer Unknown [id number] [id number] [id number] 1960 Unknown [id number] [id number] 1960 Unknown [id number] 1957 Self-pay [id number] 1957 Unknown [id number] Private Health Insurance [id number] Social History Date Type Detail Facility Sex Assigned At [facility] Other Evaluation note 08-11-2023 Note Date & Type Note Facility 08-11-2023 Evaluation note Encounter Date Diagnosis Assessment Notes Aug, Primary hypertension (ICD-10 - I10) This patient is instructed to consume a healthy, low-fat, low-salt diet. They are also encouraged to continue exercise to achieve/maint ain a normal BMI. Patient is instructed on home BP measurements: - rest for 5 minutes w/o talking.- positioned w/ feet on floor and arm supported.- average best 2/3 readings w/ goal < 135/85. 10 Aug, 2023 Current mild episode of major depressive disorder without prior episode (ICD-10 - F32.0) Healthy diet, exercise and keep active. Discussed counseling w/ adventism or hospice. Returning to work tomorrow, which will help keep her mind off her loss. Initiating SSRI for her depressed mood. She is aware it may take up to 4 wks to reach its max benefit Aug, Insomnia due to other mental disorder (ICD-10 - F51.05) Ruminating thoughts prevent her from sleep Suggest use of Ativan at night until SSRI becomes active Aug, Mental disorder, not otherwise specified (ICD-10 - F99) Difficulty sleeping triggered by depression, loss of . Temporary treatment w/ sedative initiated [facility] Other Evaluation note 06-08-2023 Note Date & Type Note Facility 06-08-2023 Evaluation note Encounter Date Diagnosis Assessment Notes Jun, Strain of right knee, initial encounter (ICD-10 - S86.911A) Quad exercises, ice/heat, Tylenol. Short course of Prednisone. XR for bone pathology, r/o fx, lytic lesion Jun, Left lower quadrant abdominal pain (ICD-10 - R10.32) Healthy diet Initiate Metamucil daily Push fluids and increase activity. CT abdomen to assess for renal stone, diverticulitis or bladder mass Jun, Primary hypertension (ICD-10 - I10) This patient is instructed to consume a healthy, low-fat, low-salt diet. They are also encouraged to continue exercise to achieve/maintain a normal BMI. Jun, Gastro-esophage al reflux disease with esophagitis, without bleeding (ICD-10 - K21.00) Diet instructions: Smaller portions, avoid eating and laying flat, avoid eating or drinking prior to bedtime. Weight loss. Jun, Personal history of urinary calculi (ICD-10 - Z87.442) Push fluids CT abdomen/pelvis Jun, Constipation, unspecified constipation type (ICD-10 - K59.00) Push fluids increase fiber in diet Initiate Metamucil Jun, Fecal smearing (ICD-10 - R15.1) Increase fiber and add Metamucil [facility] Other Evaluation note 02-17-2023 Note Date & Type Note Facility 02-17-2023 Evaluation note Encounter Date Diagnosis Assessment Notes Jan, Wellness examination (ICD-10 - Z00.00) Healthy diet and exercise. Reviewed age-appropriat e preventive testing recommended. Jan, Primary hypertension (ICD-10 - I10) This patient is instructed to consume a healthy, low-fat, low-salt diet. They are also encouraged to continue exercise to achieve/mainta in a normal BMI. Not taking BP medication, monitor w/o meds for now. Goal < 140.90 Jan, Overweight (ICD-10 - E66.3) This patient has been instructed on a low-fat, high-fiber diet. They are instructed to reduce calories, portion sizes and snacks. It is recommended that they exercise for 30 minutes, 3-5 times weekly. Jan, Idiopathic peripheral neuropathy (ICD-10 - G60.9) Inspect feet on daily basis for cuts. Fall precautions. r/o metabolic causes for neuropathy Jan, Screening for colon cancer (ICD-10 - Z12.11) Send for Cologuard No family hx for CRC Jan, Screening mammogram for breast cancer (ICD-10 - Z12.31) Instructed on SBE monthly and yearly mammogram [facility] Other Evaluation note Note Date & Type Note Facility Evaluation note No Information [facility] [employer] Other History general Narrative - Reported Note Date & Type Note Facility History general Narrative - Reported Type Medical History Headache, migraine Medical History Lumbar spondylosis Medical History Depression, major, recurrent, mi ld Medical History History of kidney stones Medical History BPPV (benign paroxys mal positional vertigo), left Medical History Primary hypertension Medical History Gastroesophageal ref lux disease with esophagitis without hemorrhage Surgical History LITHOTRIPSY 2012 Surgical History LAPAROSCOPY 2014 Surgical History 1993 Hospitalization History SEE SURGICAL HX [facility] Other Reason for visit Narrative Note Date & Type Note Facility Reason for visit Narrative referral to a employment specialist [facility] Other Summary Purpose Family History No Family History Records FoundNo Family History Records Found Advance Directives No Advanced Directives Records FoundNo Advanced Directives Records Found Additional Source Comments INFORMATION SOURCE (unrecogn ized section and content) DATE CREATED AUTHOR 12/28/2020 [facility] DATE CREATED AUTHOR 'S ORGANIZ ATION 11/06/2021 [facility] REASON FOR VISIT (unrecogniz ed section and content) wellnessLab ResultsStomach I ssuesNot Sleeping- FOR RECORDS PERTAINING TO PATIENTS WHO ARE OR HAVE BEEN ENROLLED IN A CHEMICAL DEPENDENCY/SUBSTANCEABUSE PROGRAM, SOME INFORMATION MAY BE OMITTED. This clinical summary was aggregated from multiple sources. Caution should be exercised in using it in the provision of clinical care. This summary normalizes information from multiple sources, and as a consequence, information in this document may materially change the coding, format and clinical context of patient data. In addition, data may be omitted in some cases. CLINICAL DECISIONS SHOULD BE BASED ON THE PRIMARY CLINICAL RECORDS. [facility] [employer] [facility]. provides no warranty or guarantee of the accuracy or completeness of information in this document.
== END 2024-03-16 14:54 | disposition home or self-care (01) ==
LOC: MAMMO 14:53
PROVIDERS: PCP Internal Medicine; Visit Provider Internal Medicine
DX: Z12.31 Encounter for screening mammogram for malignant neoplasm of breast (principal)
CPT/HCPCS: 77063; 77067

== ENCOUNTER 2025-04-17 16:01 | Outpatient (OUT) | payer OTHER, SELFPAY ==
--- OUTSIDE RECORDS SUMMARY | 2025-04-17 16:03 | XMS_ITS | Clinical Summary ---
Author Organization [facility] Address [address] [place] [address] Care Team Providers Care Creative Services Manager Name Role Phone Dwayne Hill DO Primary Care Provider [phone] Allergies Active Allergy Reactions Criticality Noted Date Comments Ciprofloxacin 04/05/2003 Sulfa (Sulfonamide Antibiotics) 10/2002 Social History Tobacco Use Types Packs/Day Years Used Date Smoking Tobacco: Never Assessed Comments No Sex and Gender Information Value Date Recorded Sex Assigned at Not on file Legal Sex Female 9:59 AM EST Gender Identity Not on file Sexual Orientation Not on file Last Filed Vital Signs Vital Sign Reading Time Taken Comments Blood Pressure 118/80 04/26/2003 9:30 AM EDT Pulse 76 04/26/2003 9:30 AM EDT Temperature 36.6 C (97.8 F) 04/26/2003 9:30 AM EDT Respiratory Rate 18 04/26/2003 9:30 AM EDT Oxygen Saturation - - Inhaled Oxygen Concentration - - Weight 61.2 kg (135 lb) 04/26/2003 9:30 AM EDT Height 10.4 cm (4.11 ) 04/05/2003 10:15 AM EDT Body Mass Index 5618.92 04/05/2003 10:15 AM EDT Plan of Treatment Health Maintenance Due Date Last Done Comments Anxiety Screening 1980 Depression Screening 1980 HIV Screening 1980 Hepatitis C Screening 1980 DTaP,Tdap,Td Vaccine (1 - Tdap) 1981 Cervical Cancer Screening [address] Colonography 2007 Cologuard (FIT-DNA) 2007 Colonoscopy 2007 Colorectal Cancer Screening 2007 Diabetes Screening 2007 Fecal Occult Blood 2007 Lipid Screening 2007 Sigmoidoscopy 2007 Pneumococcal Vaccine: 50+ (1 of 1 - PCV) 2012 Shingrix Vaccine (1 of 2) 2012 Influenza Vaccine (#1) 2025 RSV Vaccine (1 - 1-dose 75+ series) 2037 Care Teams Creative Services Manager Relationship Specialty Start Date End Date Dwayne Hill DO [address] [place] [address] PCP - General 04/05/03
--- OUTSIDE RECORDS SUMMARY | 2025-04-17 16:03 | XMS_ITS | Encounter Summary ---
Author Organization [facility] Address [address] [place] [address] Care Team Providers Care Systems Support Engineer Name Role Phone Unavailable Primary Care Provider Unavailabl e Encounter Details Date Type Department Care Team (Late st Contact Info) Description 01/11/2023 Abstract [facility] [facility] [address] [facility] [address] [place] [address] Gilmar Madera MD [address] [facility] [address] [place] [address] Social History Tobacco Use Types Packs/Day Years Used Date Smoking Tobacco: Never Assessed Comments Unknown Sex and Gender Information Value Date Recorded Sex Assigned at Not on file Legal Sex Female 7:18 PM EDT Gender Identity Not on file Sexual Orientation Not on file documented as of this encounter Plan of Treatment Upcoming Encounters Date Type Department Care Team (Late st Contact Info) Description 04/30/2025 11:00 AM EDT Office Visit [facility] [place] [facility] [address] [facility] [address] [place] [address] Gilmar Madera MD [address] [facility] [address] [place] [address] documented as of this encounter Visit Diagnoses Not on filedocumented in this encounter
--- NOTE | 2025-04-17 16:04 | CT_ITS ---
The [address] [address] Patient Name: ELLE GALLAGHER MRN: [id number] date: 1960 Sex: F Assigned Patient Location: CT Current Patient Location: Accession/Order Number: [id number] Exam Date: 04/17/2025 16:05 Report Date: 04/18/2025 08:58 At the request of: STEPHANIE DONIS Procedure: CT head/brain wo con CT BRAIN WITHOUT CONTRAST: CLINICAL HISTORY: Numbness and tingling of right arm and leg COMPARISON: None TECHNIQUE: Contiguous axial unenhanced images were obtained through the brain. This CT exam was performed using one or more following dose reduction techniques: Automated exposure control, adjustment of the mA and/or kV according to patient size, or use of iterative reconstruction technique. FINDINGS: The ventricles are normal in size and position. Physiologic basal ganglia calcifications are seen. There is subtle white matter hypodensity. Although nonspecific, this may be microvascular disease given the presence of carotid siphon plaque. There are no additional areas of abnormal attenuation. There is no hemorrhage, mass effect or extra-axial collections. Frontal and ethmoid mucosal thickening is seen. The mastoid air cells are clear. CT/CT head/brain wo con IMPRESSION: MINOR NONSPECIFIC WHITE MATTER DISEASE, POSSIBLY SMALL VESSEL ISCHEMIC CHANGE. MILD CHRONIC SINUSITIS. NO ACUTE ABNORMALITY. Impression dictated by: Ruby Kwok M.D. 04/18/2025 8:58 AM Dictation Location: [facility] SystemsMULTIC[facility] DEACONESS HOSPITALBitstamp Electronically authenticated by: [id number] Y Date: 04/18/2025 08:58
--- OUTSIDE RECORDS SUMMARY | 2025-04-17 16:04 | XMS_ITS | Clinical Summary ---
Author Organization [facility] tem Address [id number] [address] [place] [address] Care Team Providers Care Vehicle Sales Professional Name Role Phone Unavailable Primary Care Provider Unavailabl e Allergies Active Allergy Reactions Criticality Noted Date Comments Penicillins 01/09/2022 Medications losartan (COZAAR) 25 mg tablet Take 25 mg by mouth in the morning. Active metoprolol tartrate (LOPRESSOR) 25 mg tablet Take 25 mg by mouth in the morning and 25 mg before bedtime. Active VITAMIN A ORAL Take by mouth. Active vitamin E acetate (VITAMIN E ORAL) Take by mouth. Active cyanocobalamin (vitamin B-12) 1000 MCG tablet Take 1,000 mcg by mouth in the morning. Active ascorbic acid, vitamin C, (VITAMIN C) 250 mg tablet Take 250 mg by mouth in the morning. Active cholecalciferol , vitamin D3, (VITAMIN D3 ORAL) Take by mouth. Active Active Problems No known active problems Family History Medical History Relation Name Comments Diabetes Mother Relation Name Status Comments Father Mother Social History Tobacco Use Types Packs/Day Years Used Date Smoking Tobacco: Never Smokeless Tobacco: Never Alcohol Use Standard Drinks/Week Comments Yes 0 (1 standard drink = 0.6 oz pur e alcohol) socially Childcare Answer Date Recorded Childcare Unknown 01/11/2019 Employment Answer Date Recorded Employment Unknown 01/11/2019 Comments Unknown Sex and Gender Information Value Date Recorded Sex Assigned at Not on file Legal Sex Female 11:54 AM EDT Gender Identity Not on file Sexual Orientation Not on file Last Filed Vital Signs Vital Sign Reading Time Taken Comments Blood Pressure 150/80 01/09/2022 9:46 AM EDT Pulse - - Temperature 36.5 C (97.7 F) 01/09/2022 9:46 AM EDT Respiratory Rate - - Oxygen Saturation - - Inhaled Oxygen Concentration - - Weight 65.8 kg (145 lb) 01/09/2022 9:46 AM EDT Height 154.9 cm (5' 1 ) 01/09/2022 9:46 AM EDT Body Mass Index 27.4 01/09/2022 9:46 AM EDT Plan of Treatment Health Maintenance Due Date Last Done Comments Depression Screening 1974 Tobacco Screening 1974 Adult BMI Screening 1980 DTaP,Tdap and Td Vaccines (1 - Tdap) 1981 Pap Smear 1983 Zoster (Shingles) Vaccine (1 of 2) 04/02/20121975 Influenza Vaccine 2025 05/07/2023 Medical Devices Not on file Insurance ANTH
--- OUTSIDE RECORDS SUMMARY | 2025-04-17 16:04 | XMS_ITS | Clinical Summary ---
Author Organization [facility] Healthcare Address [address] [place] [address] Care Team Providers Care Cook House Laborer Name Role Phone Unavailable Primary Care Provider Unavailabl e Allergies Active Allergy Reactions Criticality Noted Date Comments Ciprofloxacin 04/05/2003 Morphine 02/07/2024 Other Reaction(s): Unknown Penicillins 01/09/2022 Other Reaction(s): Unknown Sulfa Antibiotics 04/05/2003 Medications ascorbic acid (Vitamin C) 250 MG tablet Take 250 mg by mouth in the morning. Active dicyclomine (Bentyl) 10 MG capsuleIndicatio ns:Gastroesophag eal reflux disease without esophagitis,Gene ralized abdominal pain,RUQ pain TAKE 1 CAPSULE BY MOUTH 4 TIMES A DAY NEEDED FOR ABDOMINAL PAIN/CRAMPS 360 capsule 1 5 Active amitriptyline (Elavil) 10 MG tabletIndication s:Fibromyalgia Take 1 tablet (10 mg) by mouth at bedtime 30 tablet 11 5 03/27/20 26 Active baclofen (Lioresal) 10 MG tabletIndication s:Fibromyalgia Take 1 tablet (10 mg) by mouth in the morning and 1 tablet (10 mg) in the evening and 1 tablet (10 mg) before bedtime. 90 tablet 5 04/26/20 25 Active metoprolol tartrate (Lopressor) 25 MG tabletIndication s:Essential hypertension Take 1 tablet (25 mg) by mouth in the morning and 1 tablet (25 mg) before bedtime. 720 tablet 5 03/27/20 26 Active escitalopram (Lexapro) 10 MG tablet Take 1 tablet orally every day 4 03/27/20 25 Discontin ued(Other ) gabapentin (Neurontin) 100 MG capsule Take 1 to 2 capsules daily 3 03/27/20 25 Discontin ued(Other ) LORazepam (Ativan) 0.5 MG tablet Take one tablet every day at bedtime as needed 4 03/27/20 25 Discontin ued(Other ) Active Problems Problem Noted Date Diagnosed Date Pain in left foot 03/27/2025 Fibromyalgia 03/27/2025 Numbness and tingling of right arm and leg 03/27 Ganglion, left ankle and foot 09/05/2024 Generalized abdominal pain 08/08/2024 Assessment & Plan (08/08/2024 3:04 PM EST): Needs EGD and Colonoscopy RUQ pain 08/08/2024 Assessment & Plan (08/08/2024 3:08 PM EST): Avoid Fatty foods Avoid Milk for now Consider testing for Gluten sensitivity Consider CT Scan Congestion of nasal sinus 02/07/2024 Nasal obstruction 02/07/2024 Anxiety 12/20/2013 Assessment & Plan (08/08/2024 3:04 PM EST): .rmaa 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 We made recommendations on how to control your blood pressure, and minimize your risk of these copmplications. We also discussed your current barriers to a healthy living and importance of healthy diet and exercise. Prior to your visit today we have reviewed your chart and formed a plan to assist with providing you the best possible care. We reviewed the possible complications of hypertension including, stroke, heart failure and kidney impairment. In addition, we discussed your medications, the importance of taking them as prescribed. DASH diet handouts GERD (gastroesophageal reflux disease) 4 Encounters Date Type Department Care Team Description 03/28/2025 Abstract [facility] [address] [place] [address] Umm Costello NP 03/27/2025 2:30 PM EDT Office Visit [facility] [place] [facility] [address] [facility] [address] [place] [id number] Gilmar Madera MD Fibromyalgia (Primary Dx); Encounter for screening mammogram for malignant neoplasm of breast; Encounter for screening for colorectal malignant neoplasm; Essential hypertension ; Numbness and tingling of right arm and leg 03/27/2025 [facility] [address] [facility] [address] [place] [phone] Gilmar Madera MD 03/27/2025 Travel from Last 3 Months Immunizations Immunization Administration Dates Next Due Influenza, Seasonal, Quadrivalent, Adjuvanted MMR 05/31/1998 SARS-COV-2 (COVID-19) vaccin e, mRNA, spike protein, LNP, PF, caosta-sucrose, 30 mcg/0.3 mL 05/07/2023 Varicella 12/01/1975 Family History Medical History Relation Name Comments Alcohol abuse Father Arthritis Mother Diabetes Mother Hyperlipidemia Mother Hypertension Mother Relation Name Status Comments Father Mother Social History Tobacco Use Types Packs/Day Years Used Date Smoking Tobacco: Never Smokeless Tobacco: Never Tobacco Cessation:Counseling Given: Not Answered PHQ-2 Answer Date Recorded Patient Health Questionnaire-2 Score 0 03/27/2025 Comments Unknown Sex and Gender Information Value Date Recorded Sex Assigned at Not on file Legal Sex Female 7:18 PM EDT Gender Identity Not on file Sexual Orientation Not on file Last Filed Vital Signs Vital Sign Reading Time Taken Comments Blood Pressure 136/68 03/27/2025 2:39 PM EDT Pulse 67 03/27/2025 2:39 PM EDT Temperature 36.4 C (97.6 F) 01/03/2025 4:10 PM EDT Respiratory Rate - - Oxygen Saturation 98% 03/27/2025 2:39 PM EDT Inhaled Oxygen Concentration - - Weight 64.4 kg (142 lb) 03/27/2025 2:39 PM EDT Height 139.7 cm (4' 7 ) 03/27/2025 2:39 PM EDT Body Mass Index 33 03/27/2025 2:39 PM EDT Plan of Treatment Upcoming Encounters Date Type Department Care Team (Late st Contact Info) Description 04/30/2025 11:00 AM EDT Office Visit [facility] [place] [facility] [address] [place] [address] Gilmar Madera MD [address] [facility] [address] [place] [address] Health Maintenance Due Date Last Done Comments CT Colonography 1962 Colonoscopy 1962 Colorectal Cancer Screening 1962 FIT-DNA 1962 FIT 1962 FOBT 1962 Sigmoidoscopy 1962 Pap Smear 1983 Cervical Cancer Screening 1992 HPV/Cotest 1992 Mammogram 2002 Influenza Vaccine (#1) 2025 05/07/2023 Insurance [employer]
--- OUTSIDE RECORDS SUMMARY | 2025-04-17 16:04 | XMS_ITS | Patient Health Record ---
Author Organization [facility] Address [address] [place] [address] Care Team Providers Care Menhaden Vessel Pilot Name Role Phone Sergio Dwayne FRANCO Primary Care Provider Unavaila ble Allergies Allergen (clinical drug ingredient) Drug/Non Drug Allergy documented on EMR Reaction Allergy Type Onset Date Status Penicillin hives Drug Allergy Active Reason For Referral No Information Medications Medication SIG (Take, Route, Fr equency, Duration) Notes Start Date End Date Status Gabapentin 100 MG 1 capsule Orally Once a day Active Meloxicam 15 MG 1 tablet Orally Once a day; Duration: 30 days Active Social History Tobacco Use: Social History Observation Description Date Details (start date - stop date) Unknown if ever smoked NA - NA Tobacco Use/Smoking Question Answer Notes Patient is a unknown if ever smoked Problems Problem Type SNOMED Code ICD Code Onset Dates Problem Status W/U Status Risk Notes Problem Ganglion cyst of left foot (disorder) (39556595636309 03) Ganglion, left ankle and foot (M67.472) Active confirmed Problem Pain in right foot (35930231946801 7) Right foot pain (M79.671) Active confirmed Problem Pain in left foot (64679566047896 7) Left foot pain (M79.672) Active confirmed Plan Of Treatment No Information Insurance Providers Payer Name Payer Address Payer Phone Subscriber Number Group Number Insured Name Patient Relationship to Insured Coverage Start Date Coverage End Date [employer] [address] [place], [place] [phone] [id number] Tamiko Boone Self - patient is the insured
--- OUTSIDE RECORDS SUMMARY | 2025-04-17 16:04 | XMS_ITS | Clinical Summary ---
Author Organization [facility] Address [address] [place] [address], [address] [place] [address] Care Team Providers Care Dry Pan Operator Name Role Phone Unavailable Primary Care Provider Unavailabl e Social History Tobacco Use Types Packs/Day Years Used Date Smoking Tobacco: Never Assessed Comments Unknown Sex and Gender Information Value Date Recorded Sex Assigned at Not on file Legal Sex Female 11:48 PM EST Gender Identity Not on file Sexual Orientation Not on file Plan of Treatment Not on file
--- OUTSIDE RECORDS SUMMARY | 2025-04-17 16:04 | XMS_ITS | Encounter Summary ---
Author Organization [facility] Address [address] [place] [address] Care Team Providers Care Segment Assembler Name Role Phone Unavailable Primary Care Provider Unavailabl e Encounter Details Date Type Department Care Team (Late Contact Info) Description 03/28/2025 Abstract [facility] [address] [place] [phone] Umm Costello NP [address] [facility] [address] [place] [address] Social History Tobacco Use Types Packs/Day Years Used Date Smoking Tobacco: Never Smokeless Tobacco: Never PHQ-2 Answer Date Recorded Patient Health Questionnaire-2 [...] Description 04/30/2025 11:00 AM EDT Office Visit [facility] [address] [place] [address] Gilmar Madera MD [address] [place] [address] documented as of this encounter Visit Diagnoses Not on filedocumented in this encounter
--- OUTSIDE RECORDS SUMMARY | 2025-04-17 16:04 | XMS_ITS | Clinical Summary ---
Author Organization [facility] Address [address] [place] [address] Care Team Providers Care Timber Harvester Operator Name Role Phone Unavailable Primary Care Provider Unavailabl e Social History Tobacco Use Types Packs/Day Years Used Date Smoking Tobacco: Never Assessed Comments Unknown Sex and Gender Information Value Date Recorded Sex Assigned at Not on file Legal Sex Female 11:00 PM EDT Gender Identity Not on file Sexual Orientation Not on file Plan of Treatment Not on file
--- OUTSIDE RECORDS SUMMARY | 2025-04-17 16:47 | XMS_ITS | CCD ---
Author Organization [facility] Care Team Providers Care Fan Blade Truer Name Role Phone SERGIO, DR BOYKIN Consulting Unavailable BALL, DR BOYKIN Primary Care Unavailable BALL, DR BOYKIN Admitting Unavailable BALL, DR BOYKIN Attending Unavailable BLAZE, DR ERWIN Calderon Consulting Unavailable BALL, DR BOYKIN Primary Care Unavailable BALL, DR BOYKIN Admitting Unavailable BALL, DR BOYKIN Attending Unavailable BALL, DR BOYKIN Consulting Unavailable GILMAR, DR LONNIE Pablo Consulting Unavailable BALL, DR BOYKIN Consulting Unavailable BALL, DR BOYKIN Primary Care Unavailable BALL, DR BOYKIN Admitting Unavailable BALL, DR BOYKIN Attending Unavailable Sergio, Dwayne Unavailable Unavailable Primary Care Provider UnavailGLEN Mendez Attending Unavailable GILMAR DONIS Attending Unavailable GILMAR DONIS Attending Unavailable Allergies Allergy Classification Reported Allergen(s) Allergy Type Date of Onset Reaction(s) Facility (1 source) Morphine Drug Allergy 12-13-19 14 [facility] Repository (2 sources) Penicillins Drug allergy (disorder) 12-13-19 14 Unknown Reaction [facility] (6 sources) Latex Drug allergy 04-05-20 24 Unknown, Unknown Reaction [facility] (5 sources) Substance with penicillin structure and antibacterial mechanism of action (substance) Drug allergy Unknown [facility] Other (2 sources) patient allergy list reviewed by nurse or physicia Propensity to adverse reactions 03-07-20 18 Comment:Done [facility] Other (2 sources) Allergies Reconciled Propensity to adverse reactions Unknown [facility] Other (7 sources) Ciprofloxacin Drug Allergy 04-05-20 03 [facility] (7 sources) Morphine Drug Allergy 02-07-20 24 [facility] (7 sources) Penicillins Drug Intolerance 01-10-20 22 [facility] (7 sources) Sulfonamides (Antibiotic) Drug Intolerance 04-05-20 03 [facility] Medications Current Medications Medication Drug Class(es) Dates Sig (Normalized) Sig (Original) amitriptyline hydrochloride 10 mg oral tablet (2 sources) Tricyclic Antidepressant Start: 03-27-2025 End: 03-27-2026 take 1 tablet by mouth at bedtime amitriptyline (Elavil) 10 MG tablet Indications: Fibromyalgia Take 1 tablet (10 mg) by mouth at bedtime 30 tablet 11 03/27/2025 03/27/2026 Active ascorbic acid 250 mg oral tablet (7 sources) Vitamin C take 1 tablet by mouth in the morning ascorbic acid (Vitamin C) 250 MG tablet Take 250 mg by mouth in the morning. Active aspirin 81 mg delayed release oral tablet (5 sources) Platelet Aggregation Inhibitor, Nonsteroidal Anti-inflammatory Drug Start: 10-07-2023 Aspirin (Adult Low Dose Aspirin) 81 mg tablet,delayed release (DR/EC) Active 81 MG PO Daily October 07, 2023 1:00am Start: 03-14-2022 Aspirin Adult Low Dose 81 MG Aspirin( 81MG Oral 1 daily ) Active -Hx Entry Oral daily Mar, Active azithromycin 250 mg oral tablet (2 sources) Macrolide Antimicrobial Start: 01-03-2025 azithromycin (Zithromax) 250 MG tablet Indications: Acute upper respiratory infection Take 2 tabs (500 mg) by mouth today, than 1 tab (250 mg) daily for 4 days. 6 tablet 01/03/2025 Active baclofen 10 mg oral tablet (3 sources) gamma-Aminobutyric Acid-ergic Agonist Start: 03-27-2025 End: 04-26-2025 take 1 tablet by mouth in the morning, then take 1 tablet by mouth in the evening, then take 1 tablet by mouth at bedtime baclofen (Lioresal) 10 MG tablet Indications: Fibromyalgia Take 1 tablet (10 mg) by mouth in the morning and 1 tablet (10 mg) in the evening and 1 tablet (10 mg) before bedtime. 90 tablet 03/27/2025 04/26/2025 Active Start: 04-01-2018 End: 10-07-2023 take 20 mg by mouth once daily Baclofen Discontinued 2 0 MG PO Daily April 01, 2018 12:00am October 07, 2023 2:29pm benzonatate 100 mg oral capsule (2 sources) Non-narcotic Antitussive Start: 01-03-2025 End: 01-10-2025 take 1 capsule by mouth three times daily as needed for cough benzonatate (Tessalon Perles) 100 MG capsule Indications: Cough, unspecified type Take 1 capsule (100 mg) by mouth 3 (three) times a day as needed for cough for up to 7 days Do not crush or chew. 21 capsule 01/03/2025 01/10/2025 Active dicyclomine hydrochloride 10 mg oral capsule (7 sources) Anticholinergic Start: 08-08-2024 End: 10-07-2024 take 1 capsule by mouth four times daily as needed for pain dicyclomine (Bentyl) 10 MG capsule Indications: Gastroesophageal reflux disease without esophagitis , Generalized abdominal pain , RUQ pain TAKE 1 CAPSULE BY MOUTH 4 TIMES A DAY NEEDED FOR ABDOMINAL PAIN/CRAMPS 360 capsule 1 08/21/2024 Active escitalopram 10 mg oral tablet (10 sources) Serotonin Reuptake Inhibitor Start: 03-16-2024 Escitalopram Oxalate Active 0 .ROUTE .COMPLEX March 16, 2024 9:20pm TOME ELVIS TABLETA POR VIA ORAL TODOS [place] ACOSTARSE FOR 30 DAYS Start: 08-11-2023 End: 03-27-2025 take 1 tablet by mouth once daily escitalopram (Lexapro) 10 MG tablet Take 1 tablet orally every day 08/11/2023 03/27/2025 Discontinued (Other) estrogens, conjugated (assisted) 0.625 mg/ml vaginal cream (5 sources) Estrogen Start: 10-07-2023 Conjugated Est rogens (Premarin) 0.625 mg/gram cream Active 1 APPLIC VAGINAL 3 Times a week October 07, 2023 1:00am Start: 08-08-2020 Premarin 0.625 MG/GM as directed Vaginal three times per week at bedtime for 0 days ok to substitute whatever insurance will cover *Pick strength-form from [facility] for eRX* Aug, Active Start: 08-08-2020 Premarin 0.625 MG/GM as directed Vaginal three times per week at bedtime for 0 days ok to substitute whatever insurance will cover *Pick strength-form from [facility] for eRX* Aug, Active Start: 08-08-2020 Premarin 0.625 MG/GM Premarin 0.625MG/GM, 1 (one) gram gram three times per week at bedtime # 1, 08/08/2020, Ref. x2. Active Vaginal three times per week at bedtime for 0 ok to substitute whatever insurance will cover *Pick strength-form from [facility] for eRX* Aug, Active isosorbide dinitrate 30 mg oral tablet (2 sources) Nitrate Vasodilator Start: 03-14-2022 Isosorbide Dinitrate 30MG Isosorbide Dinitrate( 30MG Oral 1 daily ) Active -Hx Entry Oral daily for 0 *Pick strength-form from [facility] for eRX* Mar, Active losartan potassium 25 mg oral tablet (7 sources) Angiotensin 2 Receptor Cyndi Start: 03-12-2022 End: 08-08-2024 take 25 mg by mouth once daily Losartan Active 25 MG PO Daily October 07, 2023 1:00am metoprolol tartrate 25 mg oral tablet (10 sources) beta-Adrenergic Cyndi Start: 03-27-2025 End: 03-27-2026 take 1 tablet by mouth in the morning metoprolol tartrate (Lopressor) 25 MG tablet Indications: Essential hypertension Take 1 tablet (25 mg) by mouth in the morning and 1 tablet (25 mg) before bedtime. 720 tablet 03/27/2025 03/27/2026 Active Start: 10-07-2023 End: 03-16-2024 take 25 mg by mouth once daily Metoprolol Succinate Ac tive 25 MG PO Daily March 16, 2024 8:06pm Start: 03-14-2022 Metoprolol Suc cinate ER 25 MG Metoprolol Succinate ER( 25MG Oral 1 daily ) Active -Hx Entry Oral daily for 0 Mar, Active End: 08-08-2024 take 1 tablet by mouth in the morning metoprolol tartrate (Lopressor) 25 MG tablet Take 25 mg by mouth in the morning and 25 mg in the evening. 08/08/2024 Discontinued (Other) omeprazole 40 mg delayed release oral capsule (2 sources) Proton Pump Inhibitor Start: 06-26-2020 take 1 capsule by mouth once daily Omeprazole 40 MG Omeprazole 40MG, 1 (one) Capsule daily on an empty stomach [facility] Ref. x5. Active Oral daily on an empty stomach followed in 30 minutes by bkt for 30 Jun, Active pantoprazole 40 mg delayed release oral tablet (6 sources) Proton Pump Inhibitor Start: 04-01-2018 End: 08-08-2024 take 40 mg by mouth once daily Pantoprazole Active 40 MG PO Daily October 07, 2023 2:28pm predniSONE 20 mg oral tablet (1 source) Start: 06-08-2023 take 1 tablet by mouth twice daily predniSONE 20 MG 1 tablet Orally twice daily w/ food for 5 days Jun, Active Psyllium (3 sources) Start: 10-07-2023 take 8 [oz_av] by mouth once daily Psyllium Active 1 PACKET PO Daily October 07, 2023 1:00am mix into at least 8 oz of water or juice before administering Start: 06-08-2023 Metamucil 28 % 1 packet with 8 ounces of liquid as needed Orally Once a day for 30 days Jun, Active Completed/Discontinued Medications Medication Drug Class(es) Dates Sig (Normalized) Sig (Original) benazepril hydrochloride 10 mg oral tablet (3 sources) Angiotensin Converting Enzyme Inhibitor Start: 04-01-2018 End: 08-08-2024 take 10 mg by mouth once daily Benazepril Discontinued 10 MG PO Daily April 01, 2018 12:00am October 07, 2023 2:29pm gabapentin 100 mg oral capsule (9 sources) Anti-epileptic Agent Start: 02-23-2023 End: 03-27-2025 gabapentin (Neurontin) 100 MG capsule Take 1 to 2 capsules daily 02/23/2023 03/27/2025 Discontinued (Other) LORazepam 0.5 mg oral tablet (9 sources) Benzodiazepine Start: 08-11-2023 End: 03-27-2025 LORazepam (Ativan) 0.5 MG tablet Take one tablet every day at bedtime as needed 08/11/2023 03/27/2025 Discontinued (Other) meloxicam 15 mg oral tablet (3 sources) Nonsteroidal Anti-inflammatory Drug Start: 04-01-2018 End: 08-08-2024 take 15 mg by mouth once daily Meloxicam Discontinued 15 MG PO Daily April 01, 2018 12:00am October 07, 2023 2:29pm vitamin b12 1 mg oral tablet (2 sources) Vitamin B12 End: 08-08-2024 take 1 tablet by mouth in the morning cyanocobalamin (Vitamin B-12) 1000 MCG tablet Take 1,000 mcg by mouth in the morning. 08/08/2024 Discontinued (Other) Problems Active Problems Problem Classification Problem Date Documented Date Episodic/Chronic Acute bronchitis (2 sources) Acute bronchitis; Translations: [Acute bronchitis due to other specified organisms] Episodic Anxiety disorders (16 sources) Generalized anxiety disorder; Translations: [Generalized anxiety disorder] Onset: 4 10-07-2023 Chronic Calculus of urinary tract (10 sources) History of calculus of kidney; Translations: [Personal history of urinary calculi] Episodic Conditions associated with dizziness or vertigo (10 sources) Benign paroxysmal positional vertigo; Translations: [Benign paroxysmal vertigo, left ear] Onset: 4 10-07-2023 Episodic Digestive congenital anomalies (7 sources) Congenital anomaly of esophagus; 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, unspecified] Onset: 4 02-07-2024 Chronic Esophageal disorders (18 sources) Esophageal reflux finding; Translations: [Esophageal reflux] Onset: 4 10-07-2023 Chronic Essential hypertension (20 sources) Essential hypertension; Translations: [Essential (primary) hypertension] Onset: 4 Chronic Genitourinary symptoms and ill-defined conditions (4 sources) Urinary incontinence; Translations: [Unspecified urinary incontinence] Resolved: 0 Chronic Genitourinary symptoms and ill-defined conditions (2 sources) Polyuria; Translations: [Polyuria] 04-05-2024 Episodic Headache; including migraine (12 sources) Migraine; Translations: [Migraine, unspecified, not intractable, without status migrainosus] Onset: 8 10-07-2023 Chronic Headache; including migraine (6 sources) Headache caused by drug; Translations: [Drug-induced headache, not elsewhere classified, not intractable] Onset: 4 04-05-2024 Episodic Inflammatory diseases of female pelvic organs (2 sources) Female pelvic peritoneal adhesions; Translations: [Female pelvic peritoneal adhesions (postinfective)] Episodic Lymphadenitis (6 sources) Localized enlarged lymph nodes; Translations: [Localized enlarged lymph nodes] Onset: 2 Episodic Menopausal disorders (4 sources) Atrophic vaginitis; Translations: [Postmenopausal atrophic vaginitis] Onset: 1 Resolved: 8 Chronic Miscellaneous mental health disorders (5 sources) Mental disorder; Translations: [Mental disorder, not otherwise specified] Chronic Mood disorders (11 sources) Mild recurrent major depression; Translations: [Major [...] fibromatosis; Translations: [Plantar fascial fibromatosis] Episodic Other connective tissue disease (4 sources) Fibromyalgia; Translations: [Fibromyalgia] Onset: 5 03-27-2025 Episodic Other connective tissue disease (2 sources) Pain in left foot; Translations: [Pain in left foot] Onset: 5 03-27-2025 Episodic Other ear and sense organ disorders [...] lump, unspecified site] Episodic Other gastrointestinal disorders (3 sources) Dysphagia; Translations: [Dysphagia, unspecified] Onset: 4 04-01-2018 Episodic Other gastrointestinal disorders (2 sources) Pharyngeal dysphagia; Translations: [Dysphagia, pharyngoesophageal phase] Episodic Other gastrointestinal disorders (2 sources) H/O: gastrointestinal disease; Translations: [Personal history of other diseases of the digestive system] Episodic Other gastrointestinal disorders (2 sources) Constipation; Translations: [Constipation, unspecified] Episodic Other gastrointestinal disorders (1 source) Constipation, unspecified Episodic Other gastrointestinal disorders (1 source) Fecal smearing Episodic Other lower respiratory disease (1 source) Dyspnea; Translations: [Dyspnea, unspecified] 04-05-2024 Episodic Other lower respiratory disease (1 source) Dyspnea, unspecified; Translations: [Other respiratory abnormalities] 04-05-2024 Episodic Other lower respiratory disease (2 sources) Cough; Translations: [Cough, unspecified type] 01-03-2025 Episodic Other nervous system disorders (6 sources) Idiopathic peripheral neuropathy; Translations: [Hereditary and idiopathic neuropathy, unspecified] 10-07-2023 Chronic Other nervous system disorders (1 source) Hereditary and idiopathic neuropathy, unspecified Chronic Other nervous system disorders (4 sources) Polyneuropathy; Translations: [Polyneuropathy, unspecified] Chronic Other nervous system disorders (6 sources) Paresthesia; Translations: [Anesthesia of skin] Onset: 5 03-27-2025 Episodic Other nutritional; endocrine; and metabolic disorders (2 sources) Simple obesity ; Translations: [Other obesity due to excess calories] Onset: 6 Chronic Other nutritional; endocrine; and metabolic disorders (2 sources) Body mass index 30+ - obesity; Translations: [Body mass index 30.0-30.9, adult] Onset: 6 Chronic Other nutritional; endocrine; and metabolic disorders (8 sources) Overweight; Translations: [Overweight] Onset: 5 10-07-2023 Episodic Other nutritional; endocrine; and metabolic disorders (1 source) Overweight Episodic Other screening for suspected conditions (not mental disorders or infectious disease) (20 sources) Patient encounter status; Translations: [Encounter for screening for malignant neoplasm of colon] Onset: 5 Episodic Other upper respiratory infections (6 sources) Acute pharyngitis; Translations: [Acute pharyngitis due to other specified organisms] Onset: 8 01-03-2025 Episodic Spondylosis; intervertebral disc disorders; other back problems (10 sources) Lumbar spondylosis; Translations: [Spondylosis without myelopathy or radiculopathy, lumbar region] Onset: 8 10-07-2023 Chronic Sprains and strains (3 sources) Strain of muscle of left hip; Translations: [Strain of muscle, fascia and tendon of left hip, initial encounter] Onset: 7 Episodic Systemic lupus erythematosus and connective tissue disorders (2 sources) Systemic sclerosis; Translations: [Systemic sclerosis] Onset: 8 Chronic Unclassified (2 sources) CONTACT W/AND (SUSP) EXPOS COVID-19; Translations: [CONTACT W/AND (SUSP) EXPOS COVID-19] Onset: 2 Unclassified (2 sources) Patient encounter status 03-27-2025 Viral infection (3 sources) COVID-19; Translations: [Disease caused by 2019-nCoV] Onset: 2 Past or Other Problems Problem Classification Problem Date Documented Date Episodic/Chronic Abdominal pain (20 sources) Pelvic and perineal pain; Translations: [Pelvic and perineal pain] Onset: 08-08-2024 Episodic Bacterial infection; unspecified site (2 sources) Bacterial [...] [Ganglion of joint] Onset: 03-11-2016 Episodic Other connective tissue disease (5 sources) Ganglion of ankle and foot; Translations: [Ganglion, left ankle and foot] Onset: 09-05-2024 09-05-2024 Episodic Other ear and sense organ disorders (2 sources) Malignant otitis externa; 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, left ear] Resolved: 06-26-2020 Chronic Other nutritional; endocrine; and metabolic disorders (2 sources) Body mass index 25-29 - overweight; Translations: [Body mass index 29.0-29.9, adult] Onset: 05-18-2018 Episodic Other skin disorders (2 sources) Pyogenic granuloma; Translations: [Pyogenic granuloma] Onset: 01-21-2018 Episodic Other upper respiratory disease (2 sources) Nasal congestion; Translations: [Nasal congestion] Onset: 03-28-2019 Episodic Other upper respiratory disease (7 sources) Congestion of nasal sinus; Translations: [Nasal congestion] Onset: 02-07-2024 02-07-2024 Episodic Other upper respiratory disease (7 sources) Nasal obstruction; Translations: [Other specified disorders of nose and nasal sinuses] Onset: 02-07-2024 02-07-2024 Episodic Residual codes; unclassified (2 sources) Postprocedural [...] Test Name Value Interpretation Reference Range Facility Laboratory - Microbiology an d Antimicrobial susceptibilityon 01-03-2025 SARS-CoV-2 (COVID-19) RNA LOGAN+probe Ql (Unsp spec) Negative [facility] No Panel Informationon 01-03 FLU A Negative [facility] FLU B Negative [facility] Interpretation and review of laboratory results Normal [facility] S. pyogenes DNA LOGAN+probe No m (Unsp spec)on 01-03-2025 Interpretation and review of laboratory results Normal [facility] RESULT Negative Negative [facility] US EXT NON VASC LIMITED LTon 10-31-2021 [...] ERWIN THAKUR Date: 2021-10-31 16:27 Normal [facility] Covid-19 PCR (CVDTB)on 08-02 SARS-CoV-2 (COVID-19) RNA LOGAN+probe Ql (Unsp spec) Detected Critically abnormal NOT DETECTED [facility] Comment on above: Result Comment: This test is not yet approved or cleared by the [place] FDA. When there are no FDA-approved or cleared tests available, and other criteria are met, FDA can make tests available under an emergency access mechanism called an Emergency Use Authorization (EUA). The EUA for this test is supported by the Mobile Mechanic of Health and Human Service's (HHS's) declaration [...] longer be used). Performed By: #### [facility] #### [facility] [address] [place] [address] Dr. Sree Peacock [facility] 3D VALENTIN CA Don 07-03-2021 [facility] 3D VALENTIN CAD Patient: ELLE GALLAGHER Exam Date: 07/03/2021 : 1960 Gender:F Ordering : DR DWAYNE HILL D.O. Admission #: [id number] Family : Order #: [id number] CLICK HERE TO VIEW EXAM RADIOLOGY REPORT [...] Treatments None Family Cancers None LOCATION: [facility] BREAST COMPOSITION: Scattered areas fibroglandular density. FINDINGS: [...] Garcia M.D. on 07/03/2021 at 15:10 Normal [facility] US BREAST LEFT LIMITEDon US BREAST LEFT LIMITED Patient: ELLE GALLAGHER Exam Date: 07/03/2021 : 1960 Gender:F Ordering : DR DWAYNE HILL D.O. Admission #: [id number] Family : Order #: [id number] CLICK HERE TO VIEW EXAM RADIOLOGY REPORT [...] Treatments None Family Cancers None LOCATION: [facility] BREAST COMPOSITION: Scattered areas fibroglandular density. FINDINGS: [...] Garcia M.D. on 07/03/2021 at 15:10 Normal [facility] Provider Letteron 11-28-2020 Provider Letter November 28, 2020 ELLE GALLAGHER [id number] [id number] ELLE GALLAGHER 1960 Dear Elle , You [...] matter. Sincerely, [facility] [address] [place] [address] option 1 Normal [facility]son 09-17-2020 Forms [id number]:127 Normal [facility] Ambulatory Clinical Summaryo n 09-16-2020 Ambulatory Clinical Summary {[id number] Normal [facility] Patient Educationon 09-16-19 Patient Education Obstetrics [...] Take ove (more content not included)... 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 Pt is currently [...] the office notified. New script sent to [facility] in [place]. 2. Nocturia (R35.1: Nocturia) 4-5x/night. 3. Urgency of urination (R39.15: Urgency of urination) Moderate - severe. 4. Frequency of urination (R35.0: Frequency of micturition) Pt. states she goes all the time. I have reviewed the previous health record information and history for this pt. from Dr. Pope. Follow-up With When Contact Information AUGUSTINE CHURCHILL, Eloy Pablo [address] [place] [address] [place] [address]- [phone] Additional Instructions: 3mos. Patient Education Overactive Bladder, [...] Specific Grav (more content not included)... [facility] Comment on above: Result Comment: Elec tronically Signed By: Eloy POPE MD\.br\Date and Time Signed: 09/16/20 10:27 EST\.br\Electronically Co-Signed By: Flores Bustamante MA\.br\Date and Time Co-Signed: 09/16/20 10:25 EST [facility] 09-06-2020 Forms [id number]#[id number]:127 Normal [facility] Physician Referralon 021 Physician Referral [id number]:127 [facility] Vital Signs Date Time Vital Sign Value Performing Clinician Facility 03-27-2025 14:39-0400 Body height 139.7 cm Gilmar Donis MD Work Phone: [facility] 03-27-2025 14:39-0400 Body mass index (BMI) [Ratio] 33 kg/m2 Gilmar Donis MD Work Phone: [facility] 03-27-2025 14:39-0400 Body weight 64.41 kg Gilmar Donis MD Work Phone: [facility] 03-27-2025 14:39-0400 Diastolic blood pressure 68 mm[Hg] Gilmar Donis MD Work Phone: [facility] 03-27-2025 14:39-0400 Heart rate 67 /min Gilmar Donis MD Work Phone: [facility] 03-27-2025 14:39-0400 SaO2% (BldA) [Mass fraction] 98 % Gilmar Donis MD Work Phone: [facility] 03-27-2025 14:39-0400 Systolic blood pressure 136 mm[Hg] Gilmar Donis MD Work Phone: [facility] 01-03-2025 16:10-0400 Body mass index (BMI) [Ratio] 32.69 kg/m2 Glenshaun PierreTrang [address] [employer] Work Phone: [facility] 01-03-2025 16:10-0400 Body temperature 97.59 [degF] Glen [address] [employer] Work Phone: [facility] 01-03-2025 16:10-0400 Body weight 63.[address] [employer] Work Phone: [facility] 01-03-2025 16:10-0400 Diastolic blood pressure 74 mm[Hg] Glenshaun Figuered[address] [employer] Work Phone: [facility] 01-03-2025 16:10-0400 Heart rate 96 /min Glenshaun PierreBearden [address] [employer] Work Phone: [facility] 01-03-2025 16:10-0400 SaO2% (BldA) [Mass fraction] 99 % [address] [employer] Work Phone: [facility] 01-03-2025 16:10-0400 Systolic blood pressure 126 mm[Hg] Glen Cost[address] [employer] Work Phone: [facility] 08-08-2024 14:47-0500 Body height 139.7 cm Gilmar Donis MD Work Phone: [facility] 08-08-2024 14:47-0500 Body mass index (BMI) [Ratio] 32.07 kg/m2 Gilmar Donis MD Work Phone: [facility] 08-08-2024 14:47-0500 Body weight 62.6 kg Gilmar Donis MD Work Phone: [facility] 08-08-2024 14:47-0500 Diastolic blood pressure 82 mm[Hg] Gilmar Donis MD Work Phone: [facility] 08-08-2024 14:47-0500 Heart rate 70 /min Gilmar Donis MD Work Phone: [facility] 08-08-2024 14:47-0500 SaO2% (BldA) [Mass fraction] 96 % Gilmar Donis MD Work Phone: [facility] 08-08-2024 14:47-0500 Systolic blood pressure 138 mm[Hg] Gilmar Donis MD Work Phone: [facility] 04-05-2024 15:07-0400 Body height 148.59 cm [facility] 04-05-2024 15:07-0400 Body mass index (BMI) [Ratio] 29.3 kg/m2 [facility] 04-05-2024 15:07-0400 Body weight 64.86 kg [facility] 04-05-2024 15:07-0400 Diastolic blood pressure 72 mm[Hg] [facility] 04-05-2024 15:07-0400 Heart rate 73 /min [facility] 04-05-2024 15:07-0400 Respiratory rate 12 /min [facility] 04-05-2024 15:07-0400 Systolic blood pressure 151 mm[Hg] [facility] 08-11-2023 11:30-0500 Body height 148.59 cm Dwayne Ball Other [facility] 08-11-2023 11:30-0500 Body mass index (BMI) [Ratio] 28.92 kg/m2 Dwayne Ball Other [facility] 08-11-2023 11:30-0500 Body weight 63.87 kg Dwayne Ball Other [facility] 08-11-2023 11:30-0500 Diastolic blood pressure 83 mm[Hg] Dwayne Ball Other [facility] 08-11-2023 11:30-0500 Respiratory rate 12 /min Dwayne Ball Other [facility] 08-11-2023 11:30-0500 Systolic blood pressure 148 mm[Hg] Dwayne Ball Other [facility] 06-08-2023 15:00-0500 Body height 148.59 cm Dwayne Ball Other [facility] 06-08-2023 15:00-0500 Body mass index (BMI) [Ratio] 28.92 kg/m2 Dwayne Ball Other [facility] 06-08-2023 15:00-0500 Body weight 63.87 kg Dwayne Ball Other [facility] 06-08-2023 15:00-0500 Diastolic blood pressure 88 mm[Hg] Dwayne Ball Other [facility] 06-08-2023 15:00-0500 Respiratory rate 12 /min Dwayne Ball Other [facility] 06-08-2023 15:00-0500 Systolic blood pressure 151 mm[Hg] Dwayne Ball Other [facility] 02-17-2023 15:00-0400 Body height 148.59 cm Dwayne Ball Other [facility] 02-17-2023 15:00-0400 Body mass index (BMI) [Ratio] 28.8 kg/m2 Dwayne Ball Other [facility] 02-17-2023 15:00-0400 Body weight 63.59 kg Dwayne Ball Other [facility] 02-17-2023 15:00-0400 Diastolic blood pressure 86 mm[Hg] Dwayne Ball Other [facility] 02-17-2023 15:00-0400 Respiratory rate 12 /min Dwayne Ball Other [facility] 02-17-2023 15:00-0400 Systolic blood pressure 134 mm[Hg] Dwayne Ball Other [facility] Other Encounters Encounter Date Encounter Type Care Provider Facility Start: 03-27-2025 End: 03-27-2025 Office outpatient visit 25 minutes Gilmar Donis MD Work Phone: [facility] [place] Comment on above: Fibromyalgia (Primar y Dx); Encounter for screening mammogram for malignant neoplasm of breast; Encounter for screening for colorectal malignant neoplasm; Essential hypertension ; Numbness and tingling of right arm and leg Start: 03-27-2025 End: 03-27-2025 ambulatory GILMAR DONIS Not Available Start: 03-27-2025 End: 08-26-2025 Bamboo flowsheet Gilmar Donis MD Work Phone: [facility] [place] [facility] Start: 03-27-2025 End: 03-27-2025 Bamboo flowsheet Gilmar Donis MD Work Phone: [facility] [place] [facility] Start: 01-03-2025 End: 01-03-2025 ambulatory GLEN L TRANG Not Available Start: 01-03-2025 End: 01-03-2025 Office outpatient visit [address] [employer] Work Phone: [facility] Comment on above: Acute upper respirat ory infection (Primary Dx); Pharyngitis, unspecified etiology; Cough, unspecified type Start: 08-08-2024 End: 08-08-2024 ambulatory GILMAR DONIS Not Available Start: 08-08-2024 End: 08-08-2024 Office outpatient new 45 minutes Gilmar Donis MD Work Phone: [facility] Comment on above: Essential hypertensi on (CMS/HCC) (Primary Dx); Anxiety; Gastroesophageal reflux disease without esophagitis; Generalized abdominal pain; RUQ pain Start: 04-05-2024 End: 04-05-2024 ambulatory [facility] Work Phone: Start: 04-05-2024 End: 04-05-2024 Patient encounter procedure [facility] Physician [facility] Work Phone: Start: 2024 Patient encounter status [facility] Start: 08-11-2023 End: 08-11-2023 ambulatory Dwayne Hill Other [facility] Start: 08-11-2023 Office outpatient vi sit 15 minutes Dwayne Hill [facility] Start: 06-08-2023 End: 06-08-2023 ambulatory Dwayne Hill Other [facility] Other Start: 06-08-2023 Office outpatient vi sit 25 minutes Dwayne Sergio [facility] Start: 03-08-2023 End: 03-08-2023 ambulatory Dwayne Hill Other [facility] Other Start: 03-08-2023 Telephone encounter Dwayne Hill [facility] Start: 02-26-2023 End: 02-26-2023 ambulatory Dwayne Hill Other [facility] Other Start: 02-26-2023 Telephone encounter Dwayne AVENDANO [facility] Start: 02-17-2023 End: 02-17-2023 ambulatory Dwayne Hill Other [facility] Other Start: 02-17-2023 Encounter for genera l adult medical examination without abnormal findings Dwayne Hill [facility] Start: 02-17-2023 Periodic preventive med est patient 40-64yrs Dwayne Hill [facility] Start: 10-31-2021 End: 11-01-[address] DWAYNE HILL Facility:[facility] Start: 08-19-2021 End: 08-19-[address] DWAYNE HILL Facility:[facility] Start: 07-03-2021 End: 07-04-[address] DWAYNE HILL Facility:[facility] Start: 10-31-2020 End: 10-31-2020 Gynecological examination normal Dwayne Hill Other [facility] Other Start: 07-22-2020 End: 07-22-2020 Gynecological examination abnormal Dwayne Hill Other [facility] Other Procedures Date Procedure Procedure Detail Performing Clinician Start: 01-03-2025 Iadna streptococcus group a amplified probe tq Adrien Fields DO Work Phone: Start: 01-03-2025 STATUS COVID-19/FLU Ant ioana Fields DO Work Phone: Screening for malign ant neoplasm of breast Dwayne Hill Other Screening for osteoporosis B enaustin Hill Other Plan of Treatment Date Care Activity Detail Author Start: 2025 Influenza vaccination [facility] Start: 03-27-2025 End: 03-27-2025 Patient encounter procedure 03/27/2025 2:30 PM EDT Office Visit [facility] [place] [address] [facility] [address] [place] [address] Gilmar Donis MD [address] [facility] [address] [place] [address] Arrived [facility] [place] [facility] Comment on above: Arrived Start: 03-27-2025 End: 03-27-2026 CT Head WO contrast CT head wo IV contrast Imaging Routine Numbness and tingling of right arm and leg Expected: 03/27/2025, Expires: 03/27/2026 [facility] Comment on above: Expected: 03/27/2025 , Expires: 03/27/2026 Start: 03-27-2025 End: 05-27-2026 MG Breast - bilateral Screening Bilateral screening mammogram Imaging Routine Encounter for screening mammogram for malignant neoplasm of breast Expected: 03/27/2025, Expires: 05/27/2026 [facility] Work Phone: Comment on above: Expected: 03/27/2025 , Expires: 05/27/2026 Start: 09-05-2024 End: 09-05-2024 Patient encounter procedure 09/05/2024 3:00 PM EST Office Visit [facility] [address] [facility] [address] [place] [id number] Gilmar Donis MD [address] [facility] [address] [place] [address] [facility] Start: 08-08-2024 End: 08-08-2025 US Gallbladder US gallbladder Imaging Routine Gastroesophageal reflux disease without esophagitis Generalized abdominal pain RUQ pain Expected: 08/08/2024, Expires: 08/08/2025 [facility] Comment on above: Expected: 08/08/2024 , Expires: 08/08/2025 Start: 08-08-2024 End: 08-08-2025 XR Abdomen Single view XR ABDOMEN 2 VIEW Imaging Routine Gastroesophageal reflux disease without esophagitis Generalized abdominal pain RUQ pain Expected: 08/08/2024, Expires: 08/08/2025 [facility] Work Phone: Comment on above: Expected: 08/08/2024 , Expires: 08/08/2025 Start: 2024 Influenza vaccination Influenza Vacc ine (#1) [facility] Start: 2002 Screening for malign ant neoplasm of breast Mammogram [facility] Start: 1992 Screening for malign ant neoplasm of cervix [facility] Start: 1983 Screening for malign ant neoplasm of cervix Pap Smear [facility] Start: 1962 Screening for malign ant neoplasm of colon [facility] Bacteria identified in Urine by Culture [facility] Comprehensive metabo lic 2000 panel - Serum or Plasma [facility] Immunizations Immunization Date Immunization Notes Care Provider [facility] 05-07-2023 Influenza, Seasonal, Quadrivalent, Adjuvanted Gilmar Donis MD Work Phone: [facility] 05-07-2023 SARS-COV-2 (COVID-19 ) vaccine, mRNA, spike protein, LNP, PF, acosta-sucrose, 30 mcg/0.3 mL Gilmar Donis MD Work Phone: [facility] 05-07-2023 influenza virus vaccine, unspecified formulation Gilmar Donis MD Work Phone: [facility] 04-10-2022 COVID-19 Moderna (BIvalent) Dwayne Hill Other [facility] 05-23-2021 COVID-19 Vaccine Jaime - Documentation Purposes Only Dwayne Hill Other [facility] 10-22-2020 COVID-19 Vaccine Jaime - Documentation Purposes Only Dwayne Hill Other [facility] 05-31-1998 measles, mumps and rubella virus vaccine Gilmar Donis MD Work Phone: [facility] 12-01-1975 varicella virus vaccine Jeffery Donis MD Work Phone: [facility] Payers Date Payer Category Payer Unknown [id number] 2024 Private Health Insurance [id number] 2024 Private Health Insurance [id number] 1960 Unknown [id number] 1962 Unknown [id number] 1962 Unknown [id number] 1962 Unknown [id number] 1962 Unknown [id number] 1962 Unknown [id number] 1959 Self-pay [id number] 1959 Unknown [id number] Private Health Insurance [id number] Self-pay Self Pay [id number] Unknown MMO [id number] Unknown [place] [id number] Social History Date Type Detail Facility Start: 08-08-2024 End: 03-27-2025 Sex Assigned At [facility] [place] [employer] Other Start: 1960 Sex Assigned At Female [facility] Start: 02-07-2024 Tobacco smoking status NHIS Never smoked tobacco [facility] Start: 02-07-2024 Tobacco use and exposure Smokeless tobacco non-user [facility] Start: 08-08-2024 End: 03-27-2025 History of Social function [facility] Start: 1960 Sex assigned at Not on file [facility] Functional Status Date Assessment Result Facility 03-27-2025 Patient Health Quest ionnaire 2 item (PHQ-2) [Reported] [facility] Clinical Notes 02-17-2023 to 03-27-2025 Gilmar Donis MD - 03/27/2025 2:30 PM Delvin Costello NP - 01/03/2025 4:05 PM Becca Donis MD - 08/08/2024 3:08 PM Stevan Donis MD - 08/08/2024 3:04 PM EST Note Date & Type Note Facility 03-27-2025 History of Presen t illness Narrative Subjective Patient ID: Elle Gallagher is a 64 y.o. female who presents for Migraine. Pt states she only gets migraines when her BP is high , she is not taking metoprolol , she is very fatigued also this started about a month and half ago Migraine This is a new problem. The current episode started more than 1 year ago. The problem occurs intermittently. The problem has been unchanged. Associated symptoms include numbness and weakness. Pertinent negatives include no fever. Over the past 2 weeks, how often have you been bothered by any of the following problems? Little interest or pleasure in doing things: Not at all Feeling down, depressed, or hopeless: Not at all Patient Health Questionnaire-2 Score: 0 Current Outpatient Medications on File Prior to Visit Medication Sig Dispense Refill ascorbic acid (Vitamin C) 250 MG tablet Take 250 mg by mouth in the morning. dicyclomine (Bentyl) 10 MG capsule TAKE 1 CAPSULE BY MOUTH 4 TIMES A DAY NEEDED FOR ABDOMINAL PAIN/CRAMPS 360 capsule 1 [DISCONTINUED] escitalopram (Lexapro) 10 MG tablet Take 1 tablet orally every day [DISCONTINUED] gabapentin (Neurontin) 100 MG capsule Take 1 to 2 capsules daily [DISCONTINUED] LORazepam (Ativan) 0.5 MG tablet Take one tablet every day at bedtime as needed No current facility-administered medications on file prior to visit. I have reviewed and reconciled the history and medication list with the patient today. Allergies Allergen Reactions Ciprofloxacin Morphine Other Reaction(s): Unknown Penicillins Other Reaction(s): Unknown Sulfa Antibiotics Social History Tobacco Use Smoking status: Never Smokeless tobacco: Never Family History Problem Relation Name Age of Onset Diabetes Mother Hypertension Mother Hyperlipidemia Mother Arthritis Mother Alcohol abuse Father Past Medical History: Diagnosis Date Cervical spondylolysis Depression GERD (gastroesophageal reflux disease) Hypertension Migraine Pelvic adhesions Urinary incontinence Past Surgical History: Procedure Laterality Date SECTION, CLASSIC 1994 LITHOTRIPSY 2013 Visit Vitals BP 136/68 Pulse 67 Ht 4' 7 Wt 142 lb SpO2 98% BMI 33.00 kg/m Smoking Status Never BSA 1.58 m Review of Systems Constitutional: Negative for chills and fever. Respiratory: Negative for shortness of breath. Cardiovascular: Negative for chest pain. Neurological: Positive for weakness, numbness and headaches. Objective Physical Exam Constitutional: General: She is not in acute distress. Appearance: Normal appearance. HENT: Head: Normocephalic. Cardiovascular: Rate and Rhythm: Normal rate and regular rhythm. Pulmonary: Effort: Pulmonary effort is normal. No respiratory distress. Breath sounds: Normal breath sounds. Musculoskeletal: General: Normal range of motion. Neurological: General: No focal deficit present. Mental Status: She is alert and oriented to person, place, and time. Psychiatric: Mood and Affect: Mood normal. Assessment/Plan Problem List Items Addressed This Visit Essential hypertension Relevant Medications metoprolol tartrate (Lopressor) 25 MG tablet Fibromyalgia - Primary Relevant Medications amitriptyline (Elavil) 10 MG tablet baclofen (Lioresal) 10 MG tablet Numbness and tingling of right arm and leg Relevant Orders CT head wo IV contrast Other Visit Diagnoses Encounter for screening mammogram for malignant neoplasm of breast Relevant Orders Bilateral screening mammogram Encounter for screening for colorectal malignant neoplasm Relevant Orders Ambulatory referral to General Surgery No follow-ups on file. documented in this encounter [facility] 01-03-2025 History of Presen t illness Narrative Images from the original note were not included. [address], [address] [facility], [address] P: [phone] F: [phone] HPI Historian of HPI: patient Elle Gallagher is a 64 y.o. female who presents today to the Urgent Care with the following complaints and denials which have been present for 1 day(s) C/O Denies Symptom Comments [] [x] Runny Nose [] [x] Difficulty Swallowing [x] [] Sore Throat [x] [] Cough dry [] [x] Ear Pain [] [x] Fever [] [x] Chills [x] [] Chest Congestion [x] [] Myalgia tired [x] [] Sinus Pain Headaches [x] [] Sinus Pressure Additional Comments: pt has taken Tylenol OTC medication without relief PT complains of sore throat, chest congestion, dry cough, headaches, tired, eating and drinking decreased, no N/V/D. Pt is agreeable to flu strep and covid testing. ROS A complete system ROS was performed and negative aside from the pertinent positives noted in the HPI and PE. IH Testing: PHYSICAL EXAM Physical Exam Vitals and nursing note reviewed. Constitutional: Appearance: Normal appearance. HENT: Head: Normocephalic and atraumatic. Right Ear: Ear canal normal. A middle ear effusion is present. Left Ear: Ear canal normal. A middle ear effusion is present. Nose: Right Turbinates: Swollen. Left Turbinates: Swollen. Right Sinus: Maxillary sinus tenderness and frontal sinus tenderness present. Left Sinus: Maxillary sinus tenderness and frontal sinus tenderness present. Mouth/Throat: Mouth: Mucous membranes are moist. Pharynx: Uvula midline. Eyes: Pupils: Pupils are equal, round, and reactive to light. Cardiovascular: Rate and Rhythm: Normal rate and regular rhythm. Pulmonary: Effort: Pulmonary effort is normal. Breath sounds: Normal breath sounds. Musculoskeletal: Cervical back: Neck supple. Skin: General: Skin is warm and dry. Neurological: General: No focal deficit present. Mental Status: She is alert and oriented to person, place, and time. Psychiatric: Mood and Affect: Mood normal. Behavior: Behavior normal. TREATMENT PLAN 1. Pharyngitis, unspecified etiology Strep negative. - STREP DNA PROBE 2. Cough, unspecified type Covid-19 and Influenza negative. - STATUS COVID-19/FLU - benzonatate (Tessalon Perles) 100 MG capsule; Take 1 capsule (100 mg) by mouth 3 (three) times a day as needed for cough for up to 7 days Do not crush or chew. Dispense: 21 capsule; Refill: 0 3. Acute upper respiratory infection (Primary) Diagnosis and treatment discussed. Discussed viral vs bacterial. Advised supportive therapies such as nasal saline nasal spray as needed to help thin the nasal/sinus drainage, cool mist humidifier, lots of fluids. Tylenol or ibuprofen as needed for pain or fever. Follow-up with pcp in 7 to 10 days for non-improving symptoms, or sooner for new or worsening symptoms. To ED for signs of dehydration, high fever, trouble swallowing secretions, sob - azithromycin (Zithromax) 250 MG tablet; Take 2 tabs (500 mg) by mouth today, than 1 tab (250 mg) daily for 4 days. Dispense: 6 tablet; Refill: 0 documented in this encounter [facility] 08-08-2024 History of Presen t illness Narrative Associated Problem(s): RUQ pain Avoid Fatty foods Avoid Milk for now Consider testing for Gluten sensitivity Consider CT Scan Associated Problem(s): Anxiety .rmaa Associated Problem(s): Essential hypertension (CMS/HCC) Our specific goals, for your hypertension, is [...] taking them as prescribed. DASH diet handouts Associated Problem(s): Generalized abdominal pain Needs EGD and Colonoscopy Images from the original note were not included. Subjective Patient ID: Elle Gallagher is a 64 y.o. female who presents for Establish Care and GI Problem. She states when she uses the restroom and has a BM it will burn and it is very itchy , hurts even when she is sitting down Pt has tried using a cream for the itching and states when she does have a BM something will come out and she will have to push it back up in. Normal BM 4 or 5 times No blood When has BM has something protrudes Current Outpatient Medications on File Prior to Visit Medication Sig Dispense Refill ascorbic acid (Vitamin C) 250 MG tablet Take 250 mg by mouth in the morning. escitalopram (Lexapro) 10 MG tablet Take 1 tablet orally every day gabapentin (Neurontin) 100 MG capsule Take 1 to 2 capsules daily LORazepam (Ativan) 0.5 MG tablet Take one tablet every day at bedtime as needed [DISCONTINUED] benazepril (Lotensin) 10 MG tablet 1 (one) time each day at the same time [DISCONTINUED] cyanocobalamin (Vitamin B-12) 1000 MCG tablet Take 1,000 mcg by mouth in the morning. [DISCONTINUED] losartan (Cozaar) 25 MG tablet Take 25 mg by mouth in the morning. [DISCONTINUED] meloxicam (Mobic) 15 MG tablet Take 1 tablet daily [DISCONTINUED] metoprolol tartrate (Lopressor) 25 MG tablet Take 25 mg by mouth in the morning and 25 mg in the evening. [DISCONTINUED] pantoprazole (ProtoNix) 40 MG EC tablet 1 (one) time each day at the same time No current facility-administered medications on file prior to visit. I have reviewed and reconciled the history and medication list with the patient today. Allergies Allergen Reactions Ciprofloxacin Morphine Other Reaction(s): Unknown Penicillins Other Reaction(s): Unknown Sulfa Antibiotics Social History Tobacco Use Smoking status: Never Smokeless tobacco: Never Family History Problem Relation Name Age of Onset Diabetes Mother Hypertension Mother Alcohol abuse Father Past Medical History: Diagnosis Date Cervical spondylolysis Depression (CMS/HCC) GERD (gastroesophageal reflux disease) Hypertension (CMS/HCC) Migraine (CMS/HCC) Pelvic adhesions Urinary incontinence Past Surgical History: Procedure Laterality Date SECTION, CLASSIC 1994 LITHOTRIPSY 2013 Visit Vitals BP 138/82 Pulse 70 Ht 4' 7 Wt 138 lb SpO2 96% BMI 32.07 kg/m Smoking Status Never BSA 1.56 m Review of Systems Respiratory: Negative for shortness of breath. Cardiovascular: Negative for chest pain. Gastrointestinal: Positive for abdominal pain. Negative for anal bleeding, blood in stool, constipation, diarrhea, nausea and vomiting. Objective Physical Exam Constitutional: Appearance: Normal appearance. She is obese. Cardiovascular: Rate and Rhythm: Normal rate and regular rhythm. Pulses: Normal pulses. Heart sounds: Normal heart sounds. Abdominal: General: Abdomen is flat. Bowel sounds are normal. Palpations: Abdomen is soft. Tenderness: There is abdominal tenderness. There is no guarding or rebound. Hernia: No hernia is present. Neurological: Mental Status: She is alert. Assessment/Plan Problem List Items Addressed This Visit Anxiety .rmaa Essential hypertension (CMS/HCC) - Primary Our specific goals, for your hypertension, is [...] DASH diet handouts GERD (gastroesophageal reflux disease) Relevant Medications dicyclomine (Bentyl) 10 MG capsule Other Relevant Orders XR ABDOMEN 2 VIEW Ambulatory referral to Gastroenterology US gallbladder Generalized abdominal pain Needs EGD and Colonoscopy Relevant Medications dicyclomine (Bentyl) 10 MG capsule Other Relevant Orders XR ABDOMEN 2 VIEW Ambulatory referral to Gastroenterology US gallbladder RUQ pain Avoid Fatty foods Avoid Milk for now Consider testing for Gluten sensitivity Consider CT Scan Relevant Medications dicyclomine (Bentyl) 10 MG capsule Other Relevant Orders XR ABDOMEN 2 VIEW Ambulatory referral to Gastroenterology US gallbladder Follow up in about 4 weeks (around 09/05/2024) for Recheck. documented in this encounter [facility] 08-11-2023 Evaluation note Encounter Date Diagnosis Assessment [...] exercise and keep active. Discussed counseling w/ congregation or hospice. Returning to work tomorrow, which [...] of . Temporary treatment w/ sedative initiated [facility] 11-07-2023 Evaluation note* Encounter Date Diagnosis Assessment Notes Treatment Notes Treatment Clinical Notes Jun, Strain of right knee, initial [...] exercise to achieve/maintain a normal BMI. Jun, Gastro-esophageal reflux disease with esophagitis, without bleeding (ICD-10 [...] - R15.1) Increase fiber and add Metamucil [facility] Other 07-19-2023 Evaluation note* Encounter Date Diagnosis Assessment Notes Treatment Notes Treatment Clinical Notes Jan, Wellness examination (ICD-10 - Z00.00) Healthy diet and exercise. Reviewed age-appropriate preventive testing recommended. Jan, Primary hypertension (ICD-10 - I10) This patient is instructed to consume a healthy, low-fat, low-salt diet. They are also encouraged to continue exercise to achieve/maintain a normal BMI. Not taking BP medication, [...] Instructed on SBE monthly and yearly mammogram [facility] Other Evaluation noteNo Information[employer]ort [employer] Other Evaluation note* Diagnosis Onset Date Resolution Status Abdominal pain acute Depression, major, recurrent, mild acute Dyspnea acute Headache acute Polyuria acute Primary hypertension acute [facility] Work Phone: Evaluation note* Diagnosis Essential hypertension (CMS/HCC)- Primary Unspecified essential hypertension Anxiety Anxiety state, unspecified Gastroesophageal reflux disease without esophagitis Esophageal reflux Generalized abdominal pain Abdominal pain, generalized RUQ pain Abdominal pain, right upper quadrant [facility] Diagnosis Essential hypertension (CMS/HCC)- Primary Unspecified essential hypertension Anxiety Anxiety state, unspecified Gastroesophageal reflux disease without esophagitis Esophageal reflux Generalized abdominal pain Abdominal pain, generalized RUQ pain Abdominal pain, right upper quadrant Acute upper respiratory infection- Primary Acute upper respiratory infections of unspecified site Pharyngitis, unspecified etiology Cough, unspecified type documented in this encounter [facility]* Diagnosis Essential hypertension- Primary Unspecified essential hypertension Anxiety Anxiety state, unspecified Gastroesophageal reflux disease without esophagitis Esophageal reflux Generalized abdominal pain Abdominal pain, generalized RUQ pain Abdominal pain, right upper quadrant Fibromyalgia- Primary Unspecified myalgia and myositis Encounter for screening mammogram for malignant neoplasm of breast Encounter for screening for colorectal malignant neoplasm Essential hypertension Unspecified essential hypertension Numbness and tingling of right arm and leg documented in this encounter [facility] N[facility]ative - Reported* Type Description Date Medical History Headache, migraine Medical History Lumbar spondylosis Medical History Depression, major, recurrent, mi ld Medical History History of kidney stones Medical History BPPV (benign paroxysmal position al vertigo), left Medical History Primary hypertension Medical History Gastroesophageal ref lux disease with esophagitis without hemorrhage Surgical History LITHOTRIPSY 2012 Surgical History LAPAROSCOPY 2014 Surgical History 1993 Hospitalization History SEE SURGICAL HX [facility] Other [facility] for [facility] Other Summary Purpose Family History No Family History Records Found Relationship Condition Age at Onset Recorded Date/T anh father Alcoholism Unknown mother Hypertension Unknown Diabetes mellitus Unknown Advance Directives No Advanced Directives Records Found Advance Directive Response Recorded Date/ Time Advance Directives No March 25, 2018 4:36pm Chief Complaint and Reason for Visit Chief Complaint Wellness Reason for Visit Abdominal pain Depression, major, recurrent, mild Dyspnea Headache Polyuria Primary hypertension Additional Source Comments INFORMATION SOURCE (unrecogn ized section and content) DATE CREATED AUTHOR 12/28/2020 [place] [facility] DATE CREATED AUTHOR AUTHOR'S ORGANIZ ATION 11/06/2021 Ragini Mariano [facility] DATE CREATED AUTHOR AUTHOR'S ORGANIZ ATION 03/29/2025 [facility] EPIC REASON FOR VISIT (unrecogniz ed section and content) Reason Comments Establish Care GI Problem Reason Comments Migraine Care Teams (unrecognized sec tion and content) Team Status: Active Member Role Status Dates Dwayne Hill DO Primary Care Provider Active Team Status: Inactive Member Role Status Dates Dwayne Ball , DO Primary Care Provide r, Attending Provider Active Start: April 05, 2024 End: April 05, 2024 Goals (unrecognized section and content) Goals may be documented in a n alternate section FOR RECORDS PERTAINING TO PATIENTS WHO ARE [...] BE BASED ON THE PRIMARY CLINICAL RECORDS. [employer] [facility]. provides no warranty or guarantee of the accuracy or completeness of information in this document.
== END 2025-04-17 16:02 | disposition home or self-care (01) ==
LOC: CT 16:01
PROVIDERS: PCP Family Medicine; Visit Provider Family Medicine
DX: R20.0 Anesthesia of skin (principal); R20.2 Paresthesia of skin
CPT/HCPCS: 70450